=== PATIENT | male | born 2000 | race Caucasian/White ===

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

== ENCOUNTER → 2021-01-12 | Outpatient (REF) | payer MEDICAID ==
[~2021-01-12] MED LIST changes: -QUET50TA3 PO; +QUET50TA4 PO
[2021-01-12 13:35] LABS: BASO % 0.2 % (0.0-1.0); EOS # 0.1 10^3/uL (0.0-0.5); EOS % 1.4 % (0.0-3.0); HEMATOCRIT 37.1 % (42.0-52.0); HEMOGLOBIN 12.4 g/dl (13.5-17.5); LYMPH # 1.7 10^3/uL (1.5-5.0); LYMPH % 40.3 % (24.0-44.0); MEAN CORPUSCULAR HGB CONC 33.4 g/dl (32.0-36.5); MEAN CORPUSCULAR VOLUME 86.7 fl (80.0-96.0); MONO # 0.5 10^3/uL (0.0-0.8); MONO % 10.6 % (2.0-8.0); PLATELET COUNT, AUTOMATED 326 10^3/uL (150-450); RED BLOOD COUNT 4.28 10^6/uL (4.30-6.10); WHITE BLOOD COUNT 4.3 10^3/uL (4.0-10.0)
[2021-01-12 14:35] LABS: ALBUMIN 3.6 GM/DL (3.2-5.2); ALT/SGPT 17 U/L (12-78); BILIRUBIN,TOTAL 0.3 MG/DL (0.2-1.0); BLOOD UREA NITROGEN 9 MG/DL (7-18); CALCIUM LEVEL 8.7 MG/DL (8.5-10.1); CARBON DIOXIDE LEVEL 24 MEQ/L (21-32); CHLORIDE LEVEL 99 MEQ/L (98-107); CREATININE FOR GFR 0.46 MG/DL (0.70-1.30); GLUCOSE, FASTING 84 MG/DL (70-100); POTASSIUM SERUM 4.2 MEQ/L (3.5-5.1); SODIUM LEVEL 131 MEQ/L (136-145); TOTAL 25(OH) VITAMIN D 62.5 NG/ML (30.0-100.0); TOTAL PROTEIN 6.7 GM/DL (6.4-8.2); VALPROIC ACID (DEPAKOTE) 75.4 UG/ML (50.0-100.0)
== END ==
LOC: M LABDRWAD 12:57
PROVIDERS: ATTEND Physician Assistant Medical
DX: R56.9 Unspecified convulsions (principal); R53.83 Other fatigue; E55.9 Vitamin D deficiency, unspecified

== ENCOUNTER → 2021-04-05 | Outpatient (REF) | payer MEDICAID ==
[2021-04-05 19:06] LABS: ALT/SGPT 20 U/L (12-78); BLOOD UREA NITROGEN 13 MG/DL (7-18); CALCIUM LEVEL 9.2 MG/DL (8.5-10.1); CARBON DIOXIDE LEVEL 24 MEQ/L (21-32); CHLORIDE LEVEL 92 MEQ/L (98-107); CREATININE FOR GFR 0.54 MG/DL (0.70-1.30); GLUCOSE, FASTING 86 MG/DL (70-100); POTASSIUM SERUM 4.2 MEQ/L (3.5-5.1); SODIUM LEVEL 126 MEQ/L (136-145)
[2021-04-05 19:07] LABS: ALBUMIN 3.7 GM/DL (3.2-5.2); BILIRUBIN,TOTAL 0.3 MG/DL (0.2-1.0); TOTAL PROTEIN 6.9 GM/DL (6.4-8.2)
[2021-04-05 19:34] LABS: HEMOGLOBIN A1c 5.2 %
== END ==
LOC: M SFHCADAM 15:23
PROVIDERS: ATTEND Physician Assistant Medical
DX: I10 Essential (primary) hypertension (principal); E66.01 Morbid (severe) obesity due to excess calories; R63.5 Abnormal weight gain

== ENCOUNTER 2021-04-06 14:20 | Emergency (ER) | payer MEDICAID ==
[~2021-04-06] VITALS: Ht 170.2 cm; Wt 123.6 kg
[2021-04-06 14:21] VITALS: BP 133/73
--- OUTSIDE RECORDS SUMMARY | 2021-04-06 14:26 | CCD ---
Author Author [facility] Organization [facility] Address Unknown Phone Unavailable Care Team Providers Care Linseed Oil Boiler Name Role Phone Mimi Delgado Unavailable PROBLEMS Type Condition ICD9-CM Code [id number] Code Onset Dates Condition S tatus W/U Status Risk SNOMED Code Notes Problem Other iron deficiency anemia D50.8 Active confirme d 17129261 Problem Seizure disorder G40.909 Active confirmed 12 4740412 Problem Obesity (BMI 30.0-34.9) E66.9 Active confirmed 135109679188421 Problem Essential hypertension I10 Active confirmed 02553498 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 confirme d 42710246 Problem Autism F84.0 Active confirmed 879465058 ALLERGIES Allergen (clinical drug ingredient) Drug/Non Drug Allergy do cumented on EMR Reaction Allergy Type Onset Date Status amoxicillin Amoxicillin(ND Code:[address]-18) Unknown Drug Aller gy Active amoxicillin / clavulanate Augmentin([facility] Code:[address]-75) Unkn own Drug Allergy Active Ducor and milk loose stools Non Drug Allergy Act andres Penicillin (For Allergies Use Only) Unknown Drug Allerg y Active ENCOUNTERS from 2001 to 2021-01-05 Encounter Location Date Provider Diagnosis [facility] [address] [address] [place] [address] Dec, Mimi Delgado IMMUNIZATIONS Vaccine Route Administration Date Status Influenza 18 yrs & older Flublok IM Intramuscular May 22, 2020 Administered SOCIAL HISTORY Tobacco Use: Social History Observation Description Date Details (start date - stop date) Never Smoker Sex Assigned At : Social History Observation Description Sex Assigned At Unknown Audit Question Answer Notes Total Score: 0 Interpretation: Alcohol Education Drug and Alcohol Question Answer Notes Total Score: 0 Interpretation: No problems reported Alcohol Screening: Question Answer Notes Did you have a drink containing alcohol in the past year? No Points 0 Interpretation Negative Tobacco Use: Question Answer Notes Are you a: never smoker REASON FOR REFERRAL No Information VITAL SIGNS No information MEDICATIONS Medication SIG (Take, Route, Frequency, Duration) Notes Start Da te End Date Status metFORMIN HCl 500 MG Take 1 tablet By Mouth twice a day Orally Once a day for 30 days Active Haloperidol 5 MG 1 tablet Orally Once a day as needed Active Haloperidol 10 MG 1 tablet Orally twice daily Active Drisdol 1.25 MG (10549 UT) Take 1 capsule By Mouth once a week for 28 Active Sertraline HCl 50 MG 1 tablet Orally Once a day for 30 day(s) Active Melatonin 5 MG 1 tablet in the evening Orally Once a day for 90 days Active Lisinopril 10 MG 1 tablet Orally Once a day for 90 days Apr, Active Ferrous Sulfate 325 (65 Fe) MG 1 tablet Orally twice a day for 30 Active Depakote ER 500 MG 1 tablet Orally three times daily Active guanFACINE HCl 1 MG 3 tablets Orally Daily Active Vitamin C 500 MG 2 tablet Orally Once a day for 30 Days Active Aquaphor - from the neck down Externally before bedtime for 30 Days May, Active SEROquel XR 50 MG 2.5 tablets Orally twice daily Active Cefdinir 300 MG 1 capsule Orally Twice a day for 10 days 0 September, Active Vitamin D (Ergocalciferol) 1.25 MG (68150 UT) 1 capsule Orally w eekly for 28 Active Occupational Therapy as directed F84.0 2-3 x weekly for 30 Days September, Active Debrox 6.5 % 5 drops into each ear, cover with cotton ball, leave in overnight Otic Once a week at bedtime for 30 Days September, Active PROCEDURES No Information RESULTS No Results REASON FOR VISIT refills MEDICAL (GENERAL) HISTORY Type Description Date Medical History Seizure - x1 01/11 follows with Neuro Medical History Pica Medical History Autism Medical History Reactive attachment disorder Medical History iron def anemia Medical History HTN Medical History urinary incontinence Medical History fecal incontinence Surgical History No Surgical history information Hospitalization History [facility], [facility] Goals Section No Information Health Concerns No Information MEDICAL EQUIPMENT No Information MENTAL STATUS No Information FUNCTIONAL STATUS No Information ASSESSMENTS No Information PLAN OF TREATMENT Medication Medication Name Sig Start Date Stop Date Ferrous Sulfate 325 (65 Fe) MG 1 tablet Orally twice a day for 3 0 Vitamin D (Ergocalciferol) 1.25 MG (99984 UT) 1 capsule Orally w eekly for 28 Lisinopril 10 MG 1 tablet Orally Once a day for 90 days Apr, Melatonin 5 MG 1 tablet in the evening Orally Once a day for 90 days metFORMIN HCl 500 MG Take 1 tablet By Mouth twice a day Orally Once a day for 30 days Occupational Therapy as directed F84.0 2-3 x weekly for 30 Days September, Next Appt Details Provider Name:Mimi Delgado, 2021-05-03 09:30:00 AM, [address] [address], , [place], [address], Insurance Providers Payer Name Payer Address Payer Phone Insured Name Patient Relati onship to Insured Coverage Start Date Coverage End Date MEDICAID [employer] [address] [facility] [id number] DEWEY PAEZ self
--- OUTSIDE RECORDS SUMMARY | 2021-04-06 14:26 | CCD | Continuity of Care Document ---
Author Author Parag MANZANARES P.A.-C. Organization Unknown Address [address] [place] [address] Phone [phone] Care Team Providers Care Forklift Technician Name Role Phone DelgadoMimi AUTM [phone] Problems Description No Information Available Social History Type Date Description Comments Sex Unknown Allergies, Adverse Reactions, Alerts Active Allergies Criticality Reaction | Severity Comments Date Penicillin Unable to assess criticality 05/11/2019 Augmentin Unable to assess criticality 05/11/2019 Eggs Unable to assess criticality 05/11/2019 Milk Fat, Cow Unable to assess criticality 05/11/2019 Lindsay Oil Unable to assess criticality 05/11/2019 Medications Description No Information Available Immunizations Description No Information Available Vital Signs Date Vital Result Comment 02/23/2020 7:32am Weight 232.00 lb per nurse Weight Percentile >97th 08/23/2019 7:25am BP Systolic 140 mmHg BP Diastolic 70 mmHg Heart Rate 84 /min Respiratory Rate 16 /min Results Test Acquired Date Facility Test Result H/L Range Note CBC With Differential 01/12/2021 [facility] White Blood Count 4.3 10 Normal 4.0-10.0 Red Blood Count 4.28 10 Low 4.30-6.10 Hemoglobin 12.4 g/dL Low 13.5-17.5 Hematocrit 37.1 % Low 42.0-52.0 Mean Corpuscular Volume 86.7 fl Normal 80.0-96.0 Mean Corpuscular Hemoglobin 29.0 pg Normal 27.0-33.0 Mean Corpuscular HGB Conc 33.4 g/dL Normal 32.0-36.5 Red Cell Distribution Width 12.3 % Normal 11.5-14.5 Platelet Count, Automated 326 10 Normal 150-450 Neutrophils % 47.0 % Normal 36.0-66.0 Lymph % 40.3 % Normal 24.0-44.0 [place] % 10.6 % High 2.0-8.0 Eos % 1.4 % Normal 0.0-3.0 Baso % 0.2 % Normal 0.0-1.0 Immature Granulocyte % 0.5 % Normal 0-3.0 Nucleated Red Blood Cell % 0.0 % Normal 0-0 Neutrophils # 2.0 10 Normal 1.5-8.5 Lymph # 1.7 10 Normal 1.5-5.0 [place] # 0.5 10 Normal 0.0-0.8 Eos # 0.1 10 Normal 0.0-0.5 Baso # 0.0 10 Normal 0.0-0.2 Comprehensive Metabolic Profil 01/12/2021 [facility] Glucose, Fasting 84 mg/dL Normal 70-100 Blood Urea Nitrogen 9 mg/dL Normal 7-18 Creatinine For GFR 0.46 mg/dL Low 0.70-1.30 Sodium Level 131 mEq/L Low 136-145 Potassium Serum 4.2 mEq/L Normal 3.5-5.1 Chloride Level 99 mEq/L Normal 98-107 Carbon Dioxide Level 24 mEq/L Normal 21-32 Anion Gap 8 mEq/L Normal 8-16 Calcium Level 8.7 mg/dL Normal 8.5-10.1 Ast/Sgot 8 U/L Normal 7-37 Alt/SGPT 17 U/L Normal 12-78 Alkaline Phosphatase 38 U/L Low 45-117 Bilirubin,Total 0.3 mg/dL Normal 0.2-1.0 Total Protein 6.7 GM/DL Normal 6.4-8.2 Albumin 3.6 GM/DL Normal 3.2-5.2 Albumin/Globulin Ratio 1.2 Normal Laboratory test finding 01/12/2021 [facility] Valproic Acid (Depakote) 75.4 UG/ML Normal 50.0-100.0 Thyroid Stimulating Hormone 1.550 uIU/ML Normal 0.463-3.98 Total 25(Oh) Vitamin D 62.5 NG/ML Normal 30.0-100.0 CBC With Differential 12/28/2020 [facility] White Blood Count 4.2 10 Normal 4.0-10.0 Red Blood Count 4.78 10 Normal 4.30-6.10 Hemoglobin 13.7 g/dL Normal 13.5-17.5 Hematocrit 42.1 % Normal 42.0-52.0 Mean Corpuscular Volume 88.1 fl Normal 80.0-96.0 Mean Corpuscular Hemoglobin 28.7 pg Normal 27.0-33.0 Mean Corpuscular HGB Conc 32.5 g/dL Normal 32.0-36.5 Red Cell Distribution Width 12.4 % Normal 11.5-14.5 Platelet Count, Automated 358 10 Normal 150-450 Neutrophils % 39.3 % Normal 36.0-66.0 Lymph % 49.3 % High 24.0-44.0 [place] % 8.6 % High 2.0-8.0 Eos % 2.1 % Normal 0.0-3.0 Baso % 0.5 % Normal 0.0-1.0 Immature Granulocyte % 0.2 % Normal 0-3.0 Nucleated Red Blood Cell % 0.0 % Normal 0-0 Neutrophils # 1.7 10 Normal 1.5-8.5 Lymph # 2.1 10 Normal 1.5-5.0 [place] # 0.4 10 Normal 0.0-0.8 Eos # 0.1 10 Normal 0.0-0.5 Baso # 0.0 10 Normal 0.0-0.2 Comprehensive Metabolic Profil 12/28/2020 [facility] Glucose, Fasting 85 mg/dL Normal 70-100 Blood Urea Nitrogen 9 mg/dL Normal 7-18 Creatinine For GFR 0.50 mg/dL Low 0.70-1.30 Sodium Level 140 mEq/L Normal 136-145 Potassium Serum 4.7 mEq/L Normal 3.5-5.1 Chloride Level 107 mEq/L Normal 98-107 Carbon Dioxide Level 30 mEq/L Normal 21-32 Anion Gap 3 mEq/L Low 8-16 Calcium Level 9.5 mg/dL Normal 8.5-10.1 Ast/Sgot 25 U/L Normal 7-37 Alt/SGPT 23 U/L Normal 12-78 Alkaline Phosphatase 45 U/L Normal 45-117 Bilirubin,Total 0.2 mg/dL Normal 0.2-1.0 Total Protein 7.4 GM/DL Normal 6.4-8.2 Albumin 3.9 GM/DL Normal 3.2-5.2 Albumin/Globulin Ratio 1.1 Normal Laboratory test finding 12/28/2020 [facility] Valproic Acid (Depakote) 79.9 UG/ML Normal 50.0-100.0 Laboratory test finding 10/17/2020 [facility] Valproic Acid (Depakote) 63.1 UG/ML Normal 50.0-100.0 Procedures Date Code Description Status 02/26/2021 54996 Office/Outpatient Established Mo d MDM 30-39 Min Completed 08/31/2020 98246 Office/Outpatient Established Mo d MDM 30-39 Min Completed Medical Devices Description No Information Available Encounters Type Date Location Provider Dx Diagnosis Office Visit 02/26/2021 9:00a Main office - [facility] Nataliya Quiroz.A.-C. R56.9 Unspecified convulsions F84.0 Autistic disorder Office Visit 08/31/2020 9:15a Main office - [facility] Nataliya Quiroz.A.-C. R56.9 Unspecified convulsions F84.0 Autistic disorder Assessments Date Code Description Provider 02/26/2021 R56.9 Unspecified convulsions Nataliya Castro.A.-C. 02/26/2021 F84.0 Autistic disorder Nataliya Tejeda.A.-C. 08/31/2020 R56.9 Unspecified convulsions Nataliya Castro.A.-C. 08/31/2020 F84.0 Autistic disorder Nataliya Tejeda.A.-CSunshine Plan of Treatment No Information Available Functional Status Description No Information Available Mental Status Description No Information Available Referrals Description No Information Available"
--- OUTSIDE RECORDS SUMMARY | 2021-04-06 14:26 | CCD | Continuity of Care Document ---
Author Author Parag FAJARDO P.A.-C. Organization Unknown Address [address] [place] [address] Phone [phone] Care Team Providers Care Third Grade Teacher Name Role Phone DelgadoMimi AUTM [phone] Problems Description No Information Available Social History Type Date Description Comments Sex Unknown Allergies and adverse reactions Active Allergies Criticality Reaction | Severity Comments Date Penicillin Unable to assess criticality 05/11/2019 Augmentin Unable to assess criticality 05/11/2019 Eggs Unable to assess criticality 05/11/2019 Milk Fat, Cow Unable to assess criticality 05/11/2019 [place] Oil Unable to assess criticality 05/11/2019 Medications Description No Information Available Immunizations Description No Information Available Vital Signs Date Vital Result Comment 02/26/2021 7:29am BP Systolic 110 mmHg BP Diastolic 70 mmHg Heart Rate 88 /min Respiratory Rate 20 /min 02/23/2020 7:32am Weight 232.00 lb per nurse Weight Percentile >97th Results Test Acquired Date Facility Test Result H/L Range Note CBC With Differential 01/12/2021 [facility] White Blood Count 4.3 10 Normal 4.0-10.0 [...] 36.0-66.0 Lymph % 40.3 % Normal 24.0-44.0 Ogle % 10.6 % High 2.0-8.0 Eos % 1.4 % Normal 0.0-3.0 Baso % 0.2 % Normal 0.0-1.0 Immature Granulocyte % 0.5 % Normal 0-3.0 Nucleated Red Blood Cell % 0.0 % Normal 0-0 Neutrophils # 2.0 10 Normal 1.5-8.5 Lymph # 1.7 10 Normal 1.5-5.0 Ogle # 0.5 10 Normal 0.0-0.8 Eos # 0.1 10 Normal 0.0-0.5 Baso # 0.0 10 Normal 0.0-0.2 Comprehensive Metabolic Profil 01/12/2021 [facility] Glucose, Fasting 84 mg/dL Normal 70-100 Blood [...] Ratio 1.2 Normal Laboratory test finding 01/12/2021 [facility] Valproic Acid (Depakote) 75.4 UG/ML Normal 50.0-100.0 Thyroid Stimulating Hormone 1.550 uIU/ML Normal 0.463-3.98 Total 25(Oh) Vitamin D 62.5 NG/ML Normal 30.0-100.0 CBC With Differential 12/28/2020 [facility] White Blood Count 4.2 10 Normal 4.0-10.0 [...] 36.0-66.0 Lymph % 49.3 % High 24.0-44.0 Ogle % 8.6 % High 2.0-8.0 Eos % 2.1 % Normal 0.0-3.0 Baso % 0.5 % Normal 0.0-1.0 Immature Granulocyte % 0.2 % Normal 0-3.0 Nucleated Red Blood Cell % 0.0 % Normal 0-0 Neutrophils # 1.7 10 Normal 1.5-8.5 Lymph # 2.1 10 Normal 1.5-5.0 Ogle # 0.4 10 Normal 0.0-0.8 Eos # 0.1 10 Normal 0.0-0.5 Baso # 0.0 10 Normal 0.0-0.2 Comprehensive Metabolic Profil 12/28/2020 [facility] Glucose, Fasting 85 mg/dL Normal 70-100 Blood [...] Ratio 1.1 Normal Laboratory test finding 12/28/2020 [facility] Valproic Acid (Depakote) 79.9 UG/ML Normal 50.0-100.0 Laboratory test finding 10/17/2020 [facility] Valproic Acid (Depakote) 63.1 UG/ML Normal 50.0-100.0 Procedures Date Code Description Status 02/26/2021 60496 Office/Outpatient Established Mo d MDM 30-39 Min Completed Medical Devices Description No Information Available Encounters Type Date Location Provider Dx Diagnosis Office Visit 02/26/2021 9:00a [facility] Anneliese de leon P.A.-C. R56.9 Unspecified convulsions F84.0 Autistic disorder Assessments Date Code Description Provider 02/26/2021 R56.9 Unspecified convulsions Anneliese Fajardo P.A.-C. 02/26/2021 F84.0 Autistic disorder Anneliese hayden P.A.-C. Plan of Treatment Future Appointment(s):* 08/23/2021 8:00 am - Anneliese Fajardo P.A.-C. at [facility] 02/26/2021 - Anneliese Fajardo P.A.-C.* R56.9 Unspecified convulsions* Comments: * Continue Depakote. His aide will have his serum level forwarded. * F84.0 Autistic disorder* Comments:* Follow up with behavioral health. * Follow up:* 6 months. Functional Status Description No Information Available Mental Status Description No Information Available Referrals Description No Information Available"
--- OUTSIDE RECORDS SUMMARY | 2021-04-06 14:26 | CCD | Continuity of Care Document ---
Author Author Parag FAJARDO P.A.-C. Organization Unknown Address [address] [place] [address] Phone [phone] Care Team Providers Care Loss Prevention Detective Name Role Phone DelgadoMimi AUTM [phone] Problems Description No Information Available Social History Type Date Description Comments Sex Unknown Allergies, Adverse Reactions, Alerts Active Allergies Criticality Reaction | Severity Comments Date Penicillin Unable to assess criticality 05/11/2019 Augmentin Unable to assess criticality 05/11/2019 Eggs Unable to assess criticality 05/11/2019 Milk Fat, Cow Unable to assess criticality 05/11/2019 [place] Oil Unable to assess criticality 05/11/2019 Medications [...] H/L Range Note CBC With Differential 01/12/2021 [facility] White Blood Count 4.3 10 Normal [...] 36.0-66.0 Lymph % 40.3 % Normal 24.0-44.0 [place] % 10.6 % High 2.0-8.0 Eos % 1.4 % Normal 0.0-3.0 Baso % 0.2 % Normal 0.0-1.0 Immature Granulocyte % 0.5 % Normal 0-3.0 Nucleated Red Blood Cell % 0.0 % Normal 0-0 Neutrophils # 2.0 10 Normal 1.5-8.5 Lymph # 1.7 10 Normal 1.5-5.0 [place] # 0.5 10 Normal 0.0-0.8 Eos # 0.1 10 Normal 0.0-0.5 Baso # 0.0 10 Normal 0.0-0.2 Comprehensive Metabolic Profil 01/12/2021 [facility] Glucose, Fasting 84 mg/dL Normal 70-100 [...] Ratio 1.2 Normal Laboratory test finding 01/12/2021 [facility] Valproic Acid (Depakote) 75.4 UG/ML Normal 50.0-100.0 Thyroid Stimulating Hormone 1.550 uIU/ML Normal 0.463-3.98 Total 25(Oh) Vitamin D 62.5 NG/ML Normal 30.0-100.0 CBC With Differential 12/28/2020 [facility] White Blood Count 4.2 10 Normal [...] 36.0-66.0 Lymph % 49.3 % High 24.0-44.0 [place] % 8.6 % High 2.0-8.0 Eos % 2.1 % Normal 0.0-3.0 Baso % 0.5 % Normal 0.0-1.0 Immature Granulocyte % 0.2 % Normal 0-3.0 Nucleated Red Blood Cell % 0.0 % Normal 0-0 Neutrophils # 1.7 10 Normal 1.5-8.5 Lymph # 2.1 10 Normal 1.5-5.0 [place] # 0.4 10 Normal 0.0-0.8 Eos # 0.1 10 Normal 0.0-0.5 Baso # 0.0 10 Normal 0.0-0.2 Comprehensive Metabolic Profil 12/28/2020 [facility] Glucose, Fasting 85 mg/dL Normal 70-100 [...] Ratio 1.1 Normal Laboratory test finding 12/28/2020 [facility] Valproic Acid (Depakote) 79.9 UG/ML Normal 50.0-100.0 Laboratory test finding 10/17/2020 [facility] Valproic Acid (Depakote) 63.1 UG/ML Normal 50.0-100.0 Procedures Date Code Description Status 08/31/2020 34605 Office/Outpatient Established Mo d MDM 30-39 Min Completed Medical Devices Description No Information Available Encounters Type Date Location Provider Dx Diagnosis Office Visit 08/31/2020 9:15a [facility] [place] Anneliese de leon P.A.-C. R56.9 Unspecified convulsions F84.0 Autistic disorder Assessments Date Code Description Provider 08/31/2020 R56.9 Unspecified convulsions Anneliese Fajardo P.A.-C. 08/31/2020 F84.0 Autistic disorder Anneliese hayden P.A.-C. Plan of Treatment Future Appointment(s):* 02/26/2021 9:00 am - Anneliese Fajardo P.A.-C. at Main office - [place] 08/31/2020 - Anneliese Fajardo P.A.-C.* R56.9 Unspecified convulsions* Comments: * Controlled. He continues Depakote. * F84.0 Autistic disorder* Follow up:* 6 months. Functional Status Description No Information Available Mental Status Description No Information Available Referrals Description No Information Available"
--- OUTSIDE RECORDS SUMMARY | 2021-04-06 14:26 | CCD ---
Author Author [facility] Organization [facility] Address Unknown Phone Unavailable Care Team Providers Care Road Roller Operator Name Role Phone Mimi Delgado Unavailable PROBLEMS Type Condition ICD9-CM Code [id number] Code Onset Dates Condition S tatus W/U Status Risk SNOMED Code Notes Problem Other iron deficiency anemia D50.8 Active confirme d 90530992 Problem Seizure disorder G40.909 Active confirmed 12 1908425 Problem Obesity (BMI 30.0-34.9) E66.9 Active confirmed 793053134563992 Problem Essential hypertension I10 Active confirmed 04555925 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 confirme d 24475979 Problem Autism F84.0 Active confirmed 386734460 ALLERGIES Allergen (clinical drug ingredient) Drug/Non Drug Allergy do cumented on EMR Reaction Allergy Type Onset Date Status amoxicillin Amoxicillin(ND Code:[address]-10) Unknown Drug Aller gy Active amoxicillin / clavulanate Augmentin([facility] Code:[address]-71) Unkn own Drug Allergy Active Prior [place] and milk loose stools Non Drug Allergy Act andres Penicillin (For Allergies Use Only) Unknown Drug Allerg y Active ENCOUNTERS from 2001 to 2021-03-22 Encounter Location Date Provider Diagnosis [facility] [address] [place] [address], Mimi Delgado IMMUNIZATIONS Vaccine Route Administration Date [...] Notes Start Da te End Date Status FeroSul 325 (65 Fe) MG TAKE ONE TABLET BY MOUTH TWICE DAILY for 30 Active metFORMIN HCl 500 MG Take 1 tablet By Mouth twice a day Orally Once a day for 30 days Active guanFACINE HCl 1 MG 3 tablets Orally Daily Active Drisdol 1.25 MG (21872 UT) Take 1 capsule By Mouth once a week for 28 Active Sertraline HCl 50 MG 1 tablet Orally Once a day for 30 day(s) Active Ascorbic Acid 500 MG TAKE TWO TABLETS BY MOUTH ONCE DAILY for 30 Active Vitamin D (Ergocalciferol) 1.25 MG (49349 UT) 1 capsul e Orally weekly for 28 days Active Lisinopril 10 MG 1 tablet Orally Once a day for 90 days Apr, Active Cefdinir 300 MG 1 capsule Orally Twice a day for 10 days 0 September, Active Depakote ER 500 MG 1 tablet Orally three times daily Active Occupational Therapy as directed F84.0 2-3 x weekly for 30 Days September, Active Debrox 6.5 % 5 drops into each ear, cover with cotton ball, leave in overnight Otic Once a week at bedtime for 30 Days September, Active Haloperidol 10 MG 1 tablet Orally twice daily Active Aquaphor - from the neck down Externally before bedtime for 30 Days May, Active Melatonin 5 MG 1 tablet in the evening Orally Once a day for 90 days Active SEROquel XR 50 MG 2.5 tablets Orally twice daily Active Haloperidol 5 MG 1 tablet Orally Once a day as needed Active PROCEDURES No Information RESULTS No Results REASON FOR VISIT vitamin D MEDICAL (GENERAL) HISTORY Type Description Date Medical History Seizure - x1 01/11 follows with Neuro Medical History Pica Medical History Autism Medical History Reactive attachment disorder Medical History iron def anemia Medical History HTN Medical History urinary incontinence Medical History fecal incontinence Surgical History No Surgical history information Hospitalization History Hospitalization, unknown for a few m [facility] Goals Section No Information Health Concerns No Information MEDICAL EQUIPMENT No Information MENTAL STATUS No Information FUNCTIONAL STATUS No Information ASSESSMENTS No Information PLAN OF TREATMENT Medication Medication Name Sig Start Date Stop Date Lisinopril 10 MG 1 tablet Orally Once a day for 90 days Apr, Melatonin 5 MG 1 tablet in the evening Orally Once a day for 90 days Vitamin D (Ergocalciferol) 1.25 MG (36110 UT) 1 capsul e Orally weekly for 28 days Ascorbic Acid 500 MG TAKE TWO TABLETS BY MOUTH ONCE DAILY for 30 metFORMIN HCl 500 MG Take 1 tablet By Mouth twice a day Orally Once a day for 30 days Occupational Therapy as directed F84.0 2-3 x weekly for 30 Days September, FeroSul 325 (65 Fe) MG TAKE ONE TABLET BY MOUTH TWICE DAILY for 30 Next Appt Details Provider Name:Mimi Delgado, 2021-05-28 09:30:00 AM, [address], , [place], [address], Insurance Providers Payer Name Payer Address Payer Phone Insured Name Patient Relati onship to Insured Coverage Start Date Coverage End Date MEDICAID [address] [facility] [id number] [address] SOLORZ[place]O self
--- OUTSIDE RECORDS SUMMARY | 2021-04-06 14:27 | CCD ---
Author Author [facility] Organization [facility] Address Unknown Phone Unavailable Care Team Providers Care Student Support Advisor Name Role Phone Trickey, J Anneliese PA Unavailable Unavailable Trickey, J Anneliese PA Unavailable Unavailable Trickey, J Anneliese PA Unavailable Unavailable Trickey, J Anneliese PA Unavailable Unavailable Trickey, J Anneliese PA Unavailable Unavailable Trickey, J Anneliese PA Unavailable Unavailable Trickey, J Anneliese PA Unavailable Unavailable Trickey, J Anneliese PA Unavailable Unavailable Trickey, J Anneliese PA Unavailable Unavailable Trickey, J Anneliese PA Unavailable Unavailable Trickey, J Anneliese PA Unavailable Unavailable Trickey, J Anneliese PA Unavailable Unavailable Trickey, J Anneliese PA Unavailable Unavailable Trickey, J Anneliese PA Unavailable Unavailable Trickey, J Anneliese PA Unavailable Unavailable Trickey, J Anneliese PA Unavailable Unavailable Trickey, J Anneliese PA Unavailable Unavailable Trickey, J Anneliese PA Unavailable Unavailable Trickey, J Anneliese PA Unavailable Unavailable Trickey, J Anneliese PA Unavailable Unavailable Trickey, J Anneliese PA Unavailable Unavailable Trickey, J Anneliese PA Unavailable Unavailable Trickey, J Anneliese PA Unavailable Unavailable Trickey, J Anneliese PA Unavailable Unavailable Trickey, J Anneliese PA Unavailable Unavailable Trickey, J Anneliese PA Unavailable Unavailable Trickey, J Anneliese PA Unavailable Unavailable Trickey, J Anneliese PA Unavailable Unavailable Trickey, J Anneliese PA Unavailable Unavailable Trickey, J Anneliese PA Unavailable Unavailable Trickey, J Anneliese PA Unavailable Unavailable Trickey, J Anneliese PA Unavailable Unavailable Trickey, J Anneliese PA Unavailable Unavailable Trickey, J Anneliese PA Unavailable Unavailable Trickey, J Anneliese PA Unavailable Unavailable Trickey, J Anneliese PA Unavailable Unavailable Trickey, J Anneliese PA Unavailable Unavailable Trickey, J Anneliese PA Unavailable Unavailable Trickey, J Anneliese PA Unavailable Unavailable Trickey, J Anneliese PA Unavailable Unavailable Trickey, J Anneliese PA Unavailable Unavailable Trickey, J Anneliese PA Unavailable Unavailable Trickey, J Anneliese PA Unavailable Unavailable Trickey, J Anneliese PA Unavailable Unavailable Trickey, J Anneliese PA Unavailable Unavailable Trickey, J Anneliese PA Unavailable Unavailable Trickey, J Anneliese PA Unavailable Unavailable Trickey, J Anneliese PA Unavailable Unavailable Trickey, J Anneliese PA Unavailable Unavailable Howard Pierre MD Unavailable Unavailable Howard Pierre MD Unavailable Unavailable Howard Pierre MD Unavailable Unavailable Howard Pierre MD Unavailable Unavailable Howard Pierre MD Unavailable Unavailable Howard Pierre MD Unavailable Unavailable Howard Pierre MD Unavailable Unavailable Howard Pierre MD Unavailable Unavailable Howard Pierre MD Unavailable Unavailable Howard Pierre MD Unavailable Unavailable Howard Pierre MD Unavailable Unavailable Howard Pierre MD Unavailable Unavailable Howard Pierre MD Unavailable Unavailable Howard Pierre MD Unavailable Unavailable Howard Pierre MD Unavailable Unavailable Howard Pierre MD Unavailable Unavailable Howard Pierre MD Unavailable Unavailable Howard Pierre MD Unavailable Unavailable Howard Pierre MD Unavailable Unavailable Howard Pierre MD Unavailable Unavailable Howard Pierre MD Unavailable Unavailable Howard Pierre MD Unavailable Unavailable Howard Pierre MD Unavailable Unavailable Howard Pierre MD Unavailable Unavailable Howard Pierre MD Unavailable Unavailable Howard Pierre MD Unavailable Unavailable [place], Howard SELLERS Unavailable Unavailable [place], Howard SELLERS Unavailable Unavailable [place], Howard SELLERS Unavailable Unavailable [place], Howard SELLERS Unavailable Unavailable [place], Howard SELLERS Unavailable Unavailable [facility], [facility] Unavailable Unavailable Re-disclosure Warning The records that you are about to access may contain information from federally-assisted alcohol or drug abuse programs. If such information is present, then the following federally mandated warning applies: This information has been disclosed to you from records protected by federal confidentiality rules (42 CFR part 2). The federal rules prohibit you from making any further disclosure of this information unless further disclosure is expressly permitted by the written consent of the person to whom it pertains or as otherwise permitted by 42 CFR part 2. A general authorization for the release of medical or other information is NOT sufficient for this purpose. The Federal rules restrict any use of the information to criminally investigate or prosecute any alcohol or drug abuse patient.The records that you are about to access may contain highly sensitive health information, the redisclosure of which is protected by Article 27-F of the [facility] Public Health law. If you continue you may have access to information: Regarding HIV / AIDS; Provided by facilities licensed or operated by the [facility] Office of Mental Health; or Provided by the [facility] Office for People With Developmental Disabilities. If such information is present, then the following [facility] mandated warning applies: This information has been disclosed to you from confidential records which are protected by state law. State law prohibits you from making any further disclosure of this information without the specific written consent of the person to whom it pertains, or as otherwise permitted by law. Any unauthorized further disclosure in violation of state law may result in a fine or skilled nursing sentence or both. A general authorization for the release of medical or other information is NOT sufficient authorization for further disc losure. Encounters Encounter Providers Location Date Indications Data Source(s ) Unknown [address] [facility] [address] 03/22/2021 12:00:00 AM EDT eCW1 ([facility]) Outpatient Attender: Anneliese BONNER [facility] 02/26/2021 09:00:00 AM EDT MEDENT ([facility] HAWK gordon) Unknown [address] [facility] [address] 01/04/2021 12:00:00 AM EDT eCW1 ([facility]) Unknown [address] [facility] [address] 12/11/2020 12:00:00 AM EDT eCW1 ([facility]) Unknown [address] [facility] [address] 11/20/2020 12:00:00 AM EDT eCW1 ([facility]) Outpatient Attender: Howard Rubio/Gabby/Aman/Reind l 10/27/2020 11:20:00 AM EDT MEDENT ([facility]) Unknown [address] [facility] [address] 10/18/2020 12:00:00 AM EDT eCW1 ([facility]) Outpatient [address] [facility] [address] 10/16/2020 12:00:00 AM EDT eCW1 ([facility]) Outpatient Attender: Howard Rubio/Gabby/Aman/Reind l 10/03/2020 11:10:00 AM EDT MEDENT ([facility]) Unknown [address] [facility] [address] 09/27/2020 12:00:00 AM EDT eCW1 ([facility]) Outpatient [address] [facility] [address] 09/27/2020 12:00:00 AM EDT eCW1 ([facility]) Unknown [address] [facility] [address] 09/25/2020 12:00:00 AM EDT eCW1 ([facility]) Unknown [address] [facility] [address] 09/14/2020 12:00:00 AM EDT eCW1 ([facility]) Outpatient Attender: Anneliese BONNER [facility] 08/31/2020 09:15:00 AM EDT MEDENT ([facility]) Unknown [address] [facility] [address] 08/21/2020 12:00:00 AM EDT eCW1 ([facility]) Unknown [address] [facility] [address] 07/25/2020 12:00:00 AM EST eCW1 ([facility]) Office Visit Attender: Anneliese BONNER [facility] office - [facility] n 05/29/2020 07:30:00 AM EST MEDENT ([facility]) Outpatient [address] [facility] [address] 05/22/2020 12:00:00 AM EST eCW1 ([facility]) Unknown [address] [facility] [address] 03/28/2020 12:00:00 AM EST eCW1 ([facility]) Unknown [address] [facility] [address] 03/06/2020 12:00:00 AM EDT eCW1 ([facility]) Office Visit Attender: Anneliese BONNER [facility] n 02/23/2020 08:00:00 AM EDT MEDENT ([facility]) Outpatient Attender: JOSE THOMASON 02/16/2020 01:29:00 PM EDT [facility] Immunizations Vaccine Date Status Description Data Source(s) COVID-19 VACCINE Moderna 08/28/2020 12:00:00 AM EDT completed [facility] Vaccine Series Complete: YESThis Data wa s Submitted to [facility] Via [facility]. COVID-19 VACCINE Moderna 2020 12:00:00 AM EST completed [facility] Vaccine Series Complete: NOThis Data was Submitted to [facility] Via [employer]. influenza, recombinant, quadrIvalent,injectable, prese rvative free 05/22/2020 10:51:00 AM EST completed eCW1 ([facility]) influenza, recombinant, quadrIvalent,injectable, prese rvative free 05/22/2020 10:51:00 AM EST completed eCW1 ([facility]) influenza, recombinant, quadrIvalent,injectable, prese rvative free 05/22/2020 10:51:00 AM EST completed eCW1 ([facility]) influenza, recombinant, quadrIvalent,injectable, prese rvative free 05/22/2020 10:51:00 AM EST completed eCW1 ([facility]) influenza, recombinant, quadrIvalent,injectable, prese rvative free 05/22/2020 10:51:00 AM EST completed eCW1 ([facility]) influenza, recombinant, quadrIvalent,injectable, prese rvative free 05/22/2020 10:51:00 AM EST completed eCW1 ([facility]) influenza, recombinant, quadrIvalent,injectable, prese rvative free 05/22/2020 10:51:00 AM EST completed eCW1 ([facility]) influenza, recombinant, quadrIvalent,injectable, prese rvative free 05/22/2020 10:51:00 AM EST completed eCW1 ([facility]) influenza, recombinant, quadrIvalent,injectable, prese rvative free 05/22/2020 10:51:00 AM EST completed eCW1 ([facility]) influenza, recombinant, quadrIvalent,injectable, prese rvative free 05/22/2020 10:51:00 AM EST completed eCW1 ([facility]) influenza, recombinant, quadrIvalent,injectable, prese rvative free 05/22/2020 10:51:00 AM EST completed eCW1 ([facility]) influenza, recombinant, quadrIvalent,injectable, prese rvative free 05/22/2020 10:51:00 AM EST completed eCW1 ([facility]) influenza, recombinant, quadrIvalent,injectable, prese rvative free 05/22/2020 10:51:00 AM EST completed eCW1 ([facility]) Medications Medication Brand Name Start Date Product Form Dose Route Admi nistrative Instructions Pharmacy Instructions Status Indications Reaction Description Data Source(s) Occupational Therapy [facility] 10/19/2020 12:00:00 AM EDT active Occupational Therapy eCW1 ([facility]) Occupational Therapy UNK 10/19/2020 12:00:00 AM EDT active Occupational Therapy eCW1 ([facility]) Occupational Therapy UNK 10/19/2020 12:00:00 AM EDT active Occupational Therapy eCW1 ([facility]) Occupational Therapy UNK 10/19/2020 12:00:00 AM EDT active Occupational Therapy eCW1 ([facility]) Occupational Therapy UNK 10/19/2020 12:00:00 AM EDT active Occupational Therapy eCW1 ([facility]) Occupational Therapy UNK 10/19/2020 12:00:00 AM EDT active Occupational Therapy eCW1 ([facility]) carbamide peroxide 65 MG/ML Otic Solution [Debrox] Debrox 10/03/2020 12:00:00 AM EDT active MEDENT ([facility], ) carbamide peroxide 65 MG/ML Otic Solution [Debrox] Debrox 6. 5 % Debrox 6.5 % 09/27/2020 12:00:00 AM EDT active Debrox 6.5 % eCW1 ([facility]) cefdinir 300 MG Oral Capsule Cefdinir 300 MG Cefdinir 300 MG 09/27/2020 12:00:00 AM EDT 1.0 {capsule} active Cefdinir 300 MG eCW1 ([facility]) cefdinir 300 MG Oral Capsule Cefdinir 300 MG Cefdinir 300 MG 09/27/2020 12:00:00 AM EDT 1.0 {capsule} active Cefdinir 300 MG eCW1 ([facility]) cefdinir 300 MG Oral Capsule Cefdinir 300 MG Cefdinir 300 MG 09/27/2020 12:00:00 AM EDT 1.0 {capsule} active Cefdinir 300 MG eCW1 ([facility]) carbamide peroxide 65 MG/ML Otic Solution [Debrox] Debrox 6. 5 % Debrox 6.5 % 09/27/2020 12:00:00 AM EDT active Debrox 6.5 % eCW1 ([facility]) carbamide peroxide 65 MG/ML Otic Solution [Debrox] Debrox 6. 5 % Debrox 6.5 % 09/27/2020 12:00:00 AM EDT active Debrox 6.5 % eCW1 ([facility]) cefdinir 300 MG Oral Capsule Cefdinir 300 MG Cefdinir 300 MG 09/27/2020 12:00:00 AM EDT 1.0 {capsule} active Cefdinir 300 MG eCW1 ([facility]) cefdinir 300 MG Oral Capsule Cefdinir 300 MG Cefdinir 300 MG 09/27/2020 12:00:00 AM EDT 1.0 {capsule} active Cefdinir 300 MG eCW1 ([facility]) cefdinir 300 MG Oral Capsule Cefdinir 300 MG Cefdinir 300 MG 09/27/2020 12:00:00 AM EDT 1.0 {capsule} active Cefdinir 300 MG eCW1 ([facility]) carbamide peroxide 65 MG/ML Otic Solution [Debrox] Debrox 6. 5 % Debrox 6.5 % 09/27/2020 12:00:00 AM EDT active Debrox 6.5 % eCW1 ([facility]) carbamide peroxide 65 MG/ML Otic Solution [Debrox] Debrox 6. 5 % Debrox 6.5 % 09/27/2020 12:00:00 AM EDT active Debrox 6.5 % eCW1 ([facility]) carbamide peroxide 65 MG/ML Otic Solution [Debrox] Debrox 6. 5 % Debrox 6.5 % 09/27/2020 12:00:00 AM EDT active Debrox 6.5 % eCW1 ([facility]) carbamide peroxide 65 MG/ML Otic Solution [Debrox] Debrox 6. 5 % Debrox 6.5 % 09/27/2020 12:00:00 AM EDT active Debrox 6.5 % eCW1 ([facility]) cefdinir 300 MG Oral Capsule Cefdinir 300 MG Cefdinir 300 MG 09/27/2020 12:00:00 AM EDT 1.0 {capsule} active Cefdinir 300 MG eCW1 ([facility]) cefdinir 300 MG Oral Capsule Cefdinir 300 MG Cefdinir 300 MG 09/27/2020 12:00:00 AM EDT 1.0 {capsule} active Cefdinir 300 MG eCW1 ([facility]) carbamide peroxide 65 MG/ML Otic Solution [Debrox] Debrox 6. 5 % Debrox 6.5 % 09/27/2020 12:00:00 AM EDT active Debrox 6.5 % eCW1 ([facility]) Insurance Providers Payer name Policy type / Coverage type Policy ID Covered republican ID Covered republican's relationship to nation Policy Nation Plan Information Medicaid P [id number] S [id number] MEDICAID M [id number] Self [id number] Medicaid P [id number] S [id number] MEDICAID [id number] SP [id number] Medicaid P [id number] S [id number] Medicaid Dental S [id number] S [id number] Medicaid Dental S [id number] S [id number] MEDICAID M [id number] S [id number] MEDICAID [id number] SP [id number] [place] [id number] SP [id number] [place] [id number] [facility] MEDICAID [id number] SP [id number] Problems, Conditions, and Diagnoses Code Display Name Description Problem Type Effective Dates Data Source(s) 44029996 Essential hypertension Essential hypertension Problem 10/03/2020 12:00:00 AM EDT MEDENT ([facility], ) Surgeries/Procedures Procedure Description Date Indications Data Source(s) OFFICE OUTPATIENT VISIT 25 MINUTES 02/26/2021 12:00:00 AM EDT MEDENT ([facility], ) OFFICE OUTPATIENT VISIT 25 MINUTES 08/31/2020 12:00:00 AM EDT MEDENT ([facility], ) Immunization: Flublok Quadrivalent (18 years & older) 0.5mL IM (Influenza) 05/22/2020 12:00:00 AM EST eCW1 ([facility]) Results ID Date Data Source [id number] 01/12/2021 11:08:00 AM EDT MEDENT ([facility]) Name Value Range Interpretation Code Description Data Shraddha rce(s) Supporting Document(s) Valproate [Mass/volume] in Serum or Plasma 75.4 UG/ML 50.0-100.0 MEDENT ([facility]) Thyrotropin [Units/volume] in Serum or Plasma 1.550 uIU/ML 0.463-3.98 MEDENT ([facility]) Calcidiol [Mass/volume] in Serum or Plasma 62.5 ng/mL 30.0-100.0 MEDENT ([facility]) ID Date Data Source [id number] 01/12/2021 11:08:00 AM EDT MEDENT ([facility]) Name Value Range Interpretation Code Description Data Shraddha rce(s) Supporting Document(s) Glucose, Fasting 84 mg/dL 70-100 MEDENT ([facility]) Creatinine For GFR 0.46 mg/dL 0.70-1.30 MEDENT ([facility]) Blood Urea Nitrogen 9 mg/dL 7-18 MEDENT ([facility]) Sodium Level 131 meq/L 136-145 MEDENT ([facility]) Potassium Serum 4.2 meq/L 3.5-5.1 MEDENT ([facility]) Carbon Dioxide Level 24 meq/L 21-32 MEDENT ([facility]) Chloride Level 99 meq/L 98-107 MEDENT ([facility]) Calcium Level 8.7 mg/dL 8.5-10.1 MEDENT ([facility]) Anion Gap 8 meq/L 8-16 MEDENT ([facility]) Alt/SGPT 17 U/L 12-78 MEDENT ([facility]) Ast/Sgot 8 U/L 7-37 MEDENT ([facility]) Alkaline Phosphatase 38 U/L 45-117 MEDENT ([facility]) Total Protein 6.7 GM/DL 6.4-8.2 MEDENT ([facility]) Bilirubin,Total 0.3 mg/dL 0.2-1.0 MEDENT ([facility]) Albumin 3.6 GM/DL 3.2-5.2 MEDENT ([facility]) Albumin/Globulin Ratio 1.2 MEDENT ([facility]) ID Date Data Source [id number] 01/12/2021 11:08:00 AM EDT MEDENT ([facility]) Name Value Range Interpretation Code Description Data Shraddha rce(s) Supporting Document(s) Hemoglobin 12.4 g/dL 13.5-17.5 MEDENT ([facility]) White Blood Count 4.3 10 4.0-10.0 MEDENT ([facility]) Red Blood Count 4.28 10 4.30-6.10 MEDENT ([facility]) Mean Corpuscular Volume 86.7 fl 80.0-96.0 M EDENT ([facility]) Hematocrit 37.1 % 42.0-52.0 MEDENT ([facility]) Mean Corpuscular Hemoglobin 29.0 pg 27.0-33.0 MEDENT ([facility]) Platelet Count, Automated 326 10 150-450 MEDENT ([facility]) Mean Corpuscular HGB Conc 33.4 g/dL 32.0-36.5 MEDENT ([facility]) Red Cell Distribution Width 12.3 % 11.5-14.5 MEDENT ([facility]) Neutrophils % 47.0 % 36.0-66.0 MEDENT ([facility]) Wright % 10.6 % 2.0-8.0 MEDENT ([facility]) Lymph % 40.3 % 24.0-44.0 MEDENT ([facility]) Eos % 1.4 % 0.0-3.0 MEDENT ([facility]) Immature Granulocyte % 0.5 % 0-3.0 MEDENT ([facility]) Nucleated Red Blood Cell % 0.0 % 0-0 MED ENT ([facility]) Baso % 0.2 % 0.0-1.0 MEDENT ([facility]) Wright # 0.5 10 0.0-0.8 MEDENT ([facility]) Lymph # 1.7 10 1.5-5.0 MEDENT ([facility]) Neutrophils # 2.0 10 1.5-8.5 MEDENT ([facility], ) Baso # 0.0 10 0.0-0.2 MEDENT ([facility]) Eos # 0.1 10 0.0-0.5 MEDENT ([facility]) ID Date Data Source [id number] 12/28/2020 09:00:00 AM EDT MEDENT ([facility]) Name Value Range Interpretation Code Description Data Shraddha rce(s) Supporting Document(s) Valproate [Mass/volume] in Serum or Plasma 79.9 UG/ML 50.0-100.0 MEDENT ([facility]) ID Date Data Source [id number] 12/28/2020 09:00:00 AM EDT MEDENT ([facility]) Name Value Range Interpretation Code Description Data Shraddha rce(s) Supporting Document(s) Blood Urea Nitrogen 9 mg/dL 7-18 MEDENT ([facility], ) Glucose, Fasting 85 mg/dL 70-100 MEDENT ([facility]) Creatinine For GFR 0.50 mg/dL 0.70-1.30 MEDENT ([facility]) Chloride Level 107 meq/L 98-107 MEDENT ([facility]) Sodium Level 140 meq/L 136-145 MEDENT ([facility]) Potassium Serum 4.7 meq/L 3.5-5.1 MEDENT ([facility]) Anion Gap 3 meq/L 8-16 MEDENT ([facility]) Carbon Dioxide Level 30 meq/L 21-32 MEDENT ([facility]) Calcium Level 9.5 mg/dL 8.5-10.1 MEDENT ([facility]) Ast/Sgot 25 U/L 7-37 MEDENT ([facility]) Alt/SGPT 23 U/L 12-78 MEDENT ([facility]) Alkaline Phosphatase 45 U/L 45-117 MEDENT ([facility]) Total Protein 7.4 GM/DL 6.4-8.2 MEDENT ([facility]) Bilirubin,Total 0.2 mg/dL 0.2-1.0 MEDENT ([facility]) Albumin/Globulin Ratio 1.1 MEDENT ([facility]) Albumin 3.9 GM/DL 3.2-5.2 MEDENT ([facility]) ID Date Data Source [id number] 12/28/2020 09:00:00 AM EDT MEDENT ([facility]) Name Value Range Interpretation Code Description Data Shraddha rce(s) Supporting Document(s) White Blood Count 4.2 10 4.0-10.0 MEDENT ([facility], ) Hemoglobin 13.7 g/dL 13.5-17.5 MEDENT ([facility]) Red Blood Count 4.78 10 4.30-6.10 MEDENT ([facility]) Hematocrit 42.1 % 42.0-52.0 MEDENT ([facility]) Mean Corpuscular Hemoglobin 28.7 pg 27.0-33.0 MEDENT ([facility]) Mean Corpuscular Volume 88.1 fl 80.0-96.0 M EDENT ([facility]) Mean Corpuscular HGB Conc 32.5 g/dL 32.0-36.5 MEDENT ([facility]) Red Cell Distribution Width 12.4 % 11.5-14.5 MEDENT ([facility]) Neutrophils % 39.3 % 36.0-66.0 MEDENT ([facility]) Platelet Count, Automated 358 10 150-450 MEDENT ([facility]) Lymph % 49.3 % 24.0-44.0 MEDENT ([facility], ) Wright % 8.6 % 2.0-8.0 [facility] Eos % 2.1 % 0.0-3.0 [facility] Baso % 0.5 % 0.0-1.0 MEDENT [facility] Immature Granulocyte % 0.2 % 0-3.0 MEDENT ([facility]) Nucleated Red Blood Cell % 0.0 % 0-0 MED ENT [facility] Wright # 0.4 10 0.0-0.8 MEDENT ([facility]) Neutrophils # 1.7 10 1.5-8.5 MEDENT ([facility], ) Lymph # 2.1 10 1.5-5.0 MEDENT ([facility], ) Eos # 0.1 10 0.0-0.5 MEDENT ([facility], ) Baso # 0.0 10 0.0-0.2 MEDENT ([facility], ) ID Date Data Source [id number] 10/17/2020 10:35:00 AM EDT MEDENT ([facility] ) Name Value Range Interpretation Code Description Data Shraddha rce(s) Supporting Document(s) Valproate [Mass/volume] in Serum or Plasma 63.1 UG/ML 50.0-100.0 MEDENT ([facility], ) ID Date Data Source [id number] 09/27/2020 11:36:00 AM EDT [facility] Name Value Range Interpretation Code Description Data Shraddha rce(s) Supporting Document(s) SARS-CoV-2 (COVID-19) RNA [Presence] in Respiratory specimen by SHANNON with probe detection Not Detected [facility] This lab was ordered by [facility] and reported by [facility]. ID Date Data Source [id number] 09/27/2020 10:31:00 AM EDT [facility] Name Value Range Interpretation Code Description Data Shraddha rce(s) Supporting Document(s) SARS COVID ANTIGEN NEGATIVE [facility] This lab was ordered by [facility] nd reported by [facility]. ID Date Data Source [id number] 05/22/2020 12:00:00 AM EST eCW1 ([facility] [place] Name Value Range Interpretation Code Description Data Shraddha rce(s) Supporting Document(s) 1.360 0.463-3.98 THYROID STIMULATING HORMO NE eCW1 ([facility]) ID Date Data Source [id number] 05/22/2020 12:00:00 AM EST eCW1 ([facility]) Name Value Range Interpretation Code Description Data Shraddha rce(s) Supporting Document(s) Hemoglobin A1c/Hemoglobin.total in Blood 5.1 HEMOGLOBIN A1c eCW1 ([facility]) ID Date Data Source TOTAL IRON BINDING CAPACIT 05/22/2020 12:00:00 AM EST eCW1 ( [facility]) Name Value Range Interpretation Code Description Data Shraddha rce(s) Supporting Document(s) 288 250-450 TOTAL IRON BINDING CAPACI TY eCW1 ([facility]) 73 65-175 IRON (FE) eCW1 ([facility]) 25.3 19.7-50.0 PERCENT SATURATION eCW1 ([facility]) ID Date Data Source FERRITIN 05/22/2020 12:00:00 AM EST eCW1 ([facility]) Name Value Range Interpretation Code Description Data Shraddha rce(s) Supporting Document(s) 145 26-388 FERRITIN eCW1 ([facility]) ID Date Data Source Comprehensive Metabolic Profile (CMP) 05/22/2020 12:00:00 AM EST eCW1 ([facility]) Name Value Range Interpretation Code Description Data Shraddha rce(s) Supporting Document(s) 82 70-100 GLUCOSE, FASTING eCW1 ([facility]) 0.51 0.70-1.30 CREATININE FOR GFR eCW1 ([facility]) 7 7-18 BLOOD UREA NITROGEN eCW1 ([facility]) 4.2 3.5-5.1 POTASSIUM SERUM eCW1 ([facility]) 133 136-145 SODIUM LEVEL eCW1 ([facility]) 98 98-107 CHLORIDE LEVEL eCW1 ([facility]) 29 21-32 CARBON DIOXIDE LEVEL eCW1 ([facility]) 11 7-37 AST/SGOT eCW1 ([facility]) 9.1 8.5-10.1 CALCIUM LEVEL eCW1 ([facility]) 27 12-78 ALT/SGPT eCW1 ([facility]) 52 45-117 ALKALINE PHOSPHATASE eCW1 ([facility]) 0.1 0.2-1.0 BILIRUBIN,TOTAL eCW1 ([facility]) 6.9 6.4-8.2 TOTAL PROTEIN eCW1 ([facility]) 1.2 ALBUMIN/GLOBULIN RATIO eCW1 (Pending sale to [facility]) 3.7 3.2-5.2 ALBUMIN eCW1 ([facility]) ID Date Data Source CBC with Differential 05/22/2020 12:00:00 AM EST eCW1 ([facility]) Name Value Range Interpretation Code Description Data Shraddha rce(s) Supporting Document(s) 4.7 4.0-10.0 WHITE BLOOD COUNT eCW1 ([facility]) 4.31 4.30-6.10 RED BLOOD COUNT eCW1 ([facility]) 12.2 13.5-17.5 HEMOGLOBIN eCW1 ([facility]) 37.9 42.0-52.0 HEMATOCRIT eCW1 ([facility]) 28.3 27.0-33.0 MEAN CORPUSCULAR HEMOGLOB IN eCW1 ([facility]) 87.9 80.0-96.0 MEAN CORPUSCULAR VOLUME e CW1 ([facility]) 11.9 11.5-14.5 RED CELL DISTRIBUTION WID TH eCW1 ([facility]) 32.2 32.0-36.5 MEAN CORPUSCULAR HGB CONC eCW1 ([facility]) 48.2 36.0-66.0 NEUTROPHILS % eCW1 ([facility]) 318 150-450 PLATELET COUNT, AUTOMATED eCW1 ([facility]) 36.9 24.0-44.0 LYMPH % eCW1 ([facility]) 0.6 0.0-1.0 BASO % eCW1 ([facility]) 11.8 0.0-5.0 MONO % eCW1 ([facility]) 1.9 0.0-3.0 EOS % eCW1 ([facility]) 2.2 1.5-8.5 NEUTROPHILS # eCW1 ([facility]) 0.6 0.0-0.8 MONO # eCW1 ([facility]) 1.7 1.5-5.0 LYMPH # eCW1 ([facility]) 0.0 0.0-0.2 BASO # eCW1 ([facility]) 0.1 0.0-0.5 EOS # eCW1 ([facility]) Procedure Social History Code Duration Value Status Description Data Source(s ) Smoking 10/16/2020 12:00:00 AM EDT Never Smoker completed Never S moker eCW1 ([facility]) Smoking 10/16/2020 12:00:00 AM EDT Never Smoker completed Never S moker eCW1 ([facility]) Smoking 10/16/2020 12:00:00 AM EDT Never Smoker completed Never S moker eCW1 ([facility]) Smoking 10/16/2020 12:00:00 AM EDT Never Smoker completed Never S moker eCW1 ([facility]) Smoking 10/16/2020 12:00:00 AM EDT Never Smoker completed Never S moker eCW1 ([facility]) Smoking 10/16/2020 12:00:00 AM EDT Never Smoker completed Never S moker eCW1 ([facility]) Smoking 09/27/2020 12:00:00 AM EDT Never Smoker completed Never S moker eCW1 ([facility]) Smoking 09/27/2020 12:00:00 AM EDT Never Smoker completed Never S moker eCW1 ([facility]) Smoking 05/22/2020 12:00:00 AM EST Never Smoker completed Never S moker eCW1 ([facility]) Smoking 05/22/2020 12:00:00 AM EST Never Smoker completed Never S moker eCW1 ([facility]) Smoking 05/22/2020 12:00:00 AM EST Never Smoker completed Never S moker eCW1 ([facility]) Smoking 05/22/2020 12:00:00 AM EST Never Smoker completed Never S moker eCW1 ([facility]) Smoking 05/22/2020 12:00:00 AM EST Never Smoker completed Never S moker eCW1 ([facility]) Vital Signs ID Date Data Source UNK Name Value Range Interpretation Code Description Data Source(s) Systolic blood pressure 110 mm[Hg] 110 mm[Hg] M EDENT ([facility]) Diastolic blood pressure 70 mm[Hg] 70 mm[Hg] MEDENT ([facility]) Heart rate 88 /min 88 /[facility] Respiratory rate 20 /min 20 /min [facility] ( [facility]) Body height 64 [in_i] 64 [in_i] [facility] ([facility]) 5'4" Body weight 257.00 [lb_av] 257.00 [lb_av] MEDEN T ([facility]) Body mass index (BMI) [Ratio] 44.1 kg/m2 44.1 k g/m2 [facility] ([facility]) [place] body weight 130 [lb_av] 130 [lb_av] MEDEN T ([facility]) Body weight 116.575 kg 116.575 kg [facility] ([facility]) Body height [Percentile] 3 % 3 % [facility] ([facility]) Body surface area Derived from formula 2.18 m2 2.18 m2 [facility] ([facility]) Body weight 257 [lb_av] 257 [lb_av] eCW1 ([facility]) Body height 65 [in_i] 65 [in_i] eCW1 ([facility]) Body mass index (BMI) [Ratio] 42.76 kg/m2 42.76 kg/m2 eCW1 ([facility]) Heart rate 114 /min 114 /min eCW1 ([facility]) Respiratory rate 18 /min 18 /min eCW1 ([facility]) Body temperature 96.9 [degF] 96.9 [degF] eCW1 ( [facility]) Systolic blood pressure 130 mm[Hg] 130 mm[Hg] e CW1 ([facility]) Diastolic blood pressure 76 mm[Hg] 76 mm[Hg] eCW1 ([facility]) Body weight 256.00 [lb_av] 256.00 [lb_av] MEDEN T ([facility]) Body weight 116.122 kg 116.122 kg MARKEL ([facility], ) Body weight 260.8 [lb_av] 260.8 [lb_av] eCW1 (Pending sale to [facility]) Body height 65 [in_i] 65 [in_i] eCW1 ([facility]) Body mass index (BMI) [Ratio] 43.39 kg/m2 43.39 kg/m2 eCW1 ([facility]) Heart rate 113 /min 113 /min eCW1 ([facility]) Respiratory rate 18 /min 18 /min eCW1 ([facility]) Body temperature 97.9 [degF] 97.9 [degF] eCW1 ( [facility]) Systolic blood pressure 124 mm[Hg] 124 mm[Hg] e CW1 ([facility]) Diastolic blood pressure 76 mm[Hg] 76 mm[Hg] eCW1 ([facility]) Body weight 249 [lb_av] 249 [lb_av] eCW1 ([facility]) Body height 65 [in_i] 65 [in_i] eCW1 ([facility]) Body mass index (BMI) [Ratio] 41.43 kg/m2 41.43 kg/m2 eCW1 ([facility]) Heart rate 121 /min 121 /min eCW1 ([facility]) Respiratory rate 18 /min 18 /min eCW1 ([facility]) Body temperature 96.5 [degF] 96.5 [degF] eCW1 ( [facility]) Systolic blood pressure 128 mm[Hg] 128 mm[Hg] e CW1 ([facility]) Diastolic blood pressure 82 mm[Hg] 82 mm[Hg] eCW1 ([facility]) Body weight 232.00 [lb_av] 232.00 [lb_av] JACY Bailey ([facility], ) per nurse Patient Treatment Plan of Care Planned Activity Planned Date Details Description Data Source (s) Occupational Therapy 10/19/2020 12:00:00 AM EDT eCW1 ([facility]) Occupational Therapy 10/19/2020 12:00:00 AM EDT eCW1 ([facility]) Occupational Therapy 10/19/2020 12:00:00 AM EDT eCW1 ([facility]) Occupational Therapy 10/19/2020 12:00:00 AM EDT eCW1 ([facility]) Occupational Therapy 10/19/2020 12:00:00 AM EDT eCW1 ([facility]) Occupational Therapy 10/19/2020 12:00:00 AM EDT eCW1 ([facility]) carbamide peroxide 65 MG/ML Otic Solution [Debrox] 09/27/2020 12 :00:00 AM EDT eCW1 ([facility]) cefdinir 300 MG Oral Capsule 09/27/2020 12:00:00 AM EDT eCW1 ([facility]) carbamide peroxide 65 MG/ML Otic Solution [Debrox] 09/27/2020 12 :00:00 AM EDT eCW1 ([facility]) cefdinir 300 MG Oral Capsule 09/27/2020 12:00:00 AM EDT eCW1 ([facility])
--- OUTSIDE RECORDS SUMMARY | 2021-04-06 15:48 | CCD ---
Author Author [facility] Organization [facility] Address Unknown Phone Unavailable Care Team Providers Care Steamfitter Name Role Phone Trickey, J Anneliese PA [...] Unavailable Unavailable Howard Pierre MD Unavailable Unavailable [place], Howard SELLERS Unavailable Unavailable [place], Howard SELLERS Unavailable Unavailable [place], Howard SELLERS Unavailable Unavailable [place], Howard SELLERS Unavailable Unavailable [place], Howard SELLERS Unavailable Unavailable [facility], EKOLB Unavailable [...] is protected by Article 27-F of the [facility] Public Health law. If you continue you may have access to information: Regarding HIV / AIDS; Provided by facilities licensed or operated by the [facility] Office of Mental Health; or Provided by the [facility] Office for People With Developmental Disabilities. If such information is present, then the following [facility] mandated warning applies: This information has been [...] law may result in a fine or senior care sentence or both. A general authorization for the release of medical or other information is NOT sufficient authorization for further disc losure. Encounters Encounter Providers Location Date Indications Data Source(s ) Unknown [address] [facility] [address] 03/22/2021 12:00:00 AM EDT eCW1 ([facility]) Outpatient Attender: Anneliese BONNER [facility] 02/26/2021 09:00:00 AM EDT MEDENT ([facility] HAWK gordon) Unknown [address] [facility] [address] 01/04/2021 12:00:00 AM EDT eCW1 ([facility]) [place] [address] [facility] [address] 12/11/2020 12:00:00 AM EDT eCW1 ([facility]) Unknown [address] [facility] [address] 11/20/2020 12:00:00 AM EDT eCW1 ([facility]) Outpatient Attender: Howard Rubio/Gabby/Aman/Reind l 10/27/2020 11:20:00 AM EDT MEDENT ([facility]) Unknown [address] [facility] [address] 10/18/2020 12:00:00 AM EDT eCW1 ([facility]) Outpatient [address] [facility] [address] 10/16/2020 12:00:00 AM EDT eCW1 ([facility]) Outpatient Attender: Howard Rubio/Gabby/Aman/Reind l 10/03/2020 11:10:00 AM EDT MEDENT ([facility]) Unknown [address] [facility] [address] 09/27/2020 12:00:00 AM EDT eCW1 ([facility]) Outpatient [address] [facility] [address] 09/27/2020 12:00:00 AM EDT eCW1 ([facility]) Unknown [address] [facility] [address] 09/25/2020 12:00:00 AM EDT eCW1 ([facility]) Unknown [address] [facility] [address] 09/14/2020 12:00:00 AM EDT eCW1 ([facility]) Outpatient Attender: Anneliese BONNER [facility] 08/31/2020 09:15:00 AM EDT MEDENT ([facility]) [place] [address] [facility] [address] 08/21/2020 12:00:00 AM EDT eCW1 ([facility]) Unknown [address] [facility] [address] 07/25/2020 12:00:00 AM EST eCW1 ([facility]) Office Visit Attender: Anneliese BONNER [facility] office - [facility] n 05/29/2020 07:30:00 AM EST MEDENT ([facility]) Outpatient [address] [facility] [address] 05/22/2020 12:00:00 AM EST eCW1 ([facility]) Unknown [address] [facility] [address] 03/28/2020 12:00:00 AM EST eCW1 ([facility]) Unknown [address] [facility] [address] 03/06/2020 12:00:00 AM EDT eCW1 ([facility]) Office Visit Attender: Anneliese BONNER [facility] n 02/23/2020 08:00:00 AM EDT MEDENT ([facility]) Outpatient Attender: JOSE THOMASON 02/16/2020 01:29:00 PM EDT [facility] Immunizations Vaccine Date Status Description Data Source(s) COVID-19 VACCINE Moderna 08/28/2020 12:00:00 AM EDT completed [facility] Vaccine Series Complete: YESThis Data wa s Submitted to [facility] Via [employer]. COVID-19 VACCINE Moderna 2020 12:00:00 AM EST completed [facility] Vaccine Series Complete: NOThis Data was Submitted to [facility] Via [employer]. influenza, recombinant, quadrIvalent,injectable, prese rvative free 05/22/2020 10:51:00 AM EST completed eCW1 ([facility]) influenza, recombinant, quadrIvalent,injectable, prese rvative free 05/22/2020 10:51:00 AM EST completed eCW1 ([facility]) influenza, recombinant, quadrIvalent,injectable, prese rvative free 05/22/2020 10:51:00 AM EST completed eCW1 ([facility]) influenza, recombinant, quadrIvalent,injectable, prese rvative free 05/22/2020 10:51:00 AM EST completed eCW1 ([facility]) influenza, recombinant, quadrIvalent,injectable, prese rvative free 05/22/2020 10:51:00 AM EST completed eCW1 ([facility]) influenza, recombinant, quadrIvalent,injectable, prese rvative free 05/22/2020 10:51:00 AM EST completed eCW1 ([facility]) influenza, recombinant, quadrIvalent,injectable, prese rvative free 05/22/2020 10:51:00 AM EST completed eCW1 ([facility]) influenza, recombinant, quadrIvalent,injectable, prese rvative free 05/22/2020 10:51:00 AM EST completed eCW1 ([facility]) influenza, recombinant, quadrIvalent,injectable, prese rvative free 05/22/2020 10:51:00 AM EST completed eCW1 ([facility]) influenza, recombinant, quadrIvalent,injectable, prese rvative free 05/22/2020 10:51:00 AM EST completed eCW1 ([facility]) influenza, recombinant, quadrIvalent,injectable, prese rvative free 05/22/2020 10:51:00 AM EST completed eCW1 ([facility]) influenza, recombinant, quadrIvalent,injectable, prese rvative free 05/22/2020 10:51:00 AM EST completed eCW1 ([facility]) influenza, recombinant, quadrIvalent,injectable, prese rvative free 05/22/2020 10:51:00 AM EST completed eCW1 ([facility]) Medications Medication Brand Name Start Date Product Form Dose Route Admi nistrative Instructions Pharmacy Instructions Status Indications Reaction Description Data Source(s) Occupational Therapy [facility] 10/19/2020 12:00:00 AM EDT active Occupational Therapy eCW1 ([facility]) Occupational Therapy UNK 10/19/2020 12:00:00 AM EDT active Occupational Therapy eCW1 ([facility]) Occupational Therapy UNK 10/19/2020 12:00:00 AM EDT active Occupational Therapy eCW1 ([facility]) Occupational Therapy UNK 10/19/2020 12:00:00 AM EDT active Occupational Therapy eCW1 ([facility]) Occupational Therapy UNK 10/19/2020 12:00:00 AM EDT active Occupational Therapy eCW1 ([facility]) Occupational Therapy UNK 10/19/2020 12:00:00 AM EDT active Occupational Therapy eCW1 ([facility]) carbamide peroxide 65 MG/ML Otic Solution [Debrox] Debrox 10/03/2020 12:00:00 AM EDT active MEDENT ([facility], ) carbamide peroxide 65 MG/ML Otic Solution [Debrox] Debrox 6. 5 % Debrox 6.5 % 09/27/2020 12:00:00 AM EDT active Debrox 6.5 % eCW1 ([facility]) cefdinir 300 MG Oral Capsule Cefdinir 300 MG Cefdinir 300 MG 09/27/2020 12:00:00 AM EDT 1.0 {capsule} active Cefdinir 300 MG eCW1 ([facility]) cefdinir 300 MG Oral Capsule Cefdinir 300 MG Cefdinir 300 MG 09/27/2020 12:00:00 AM EDT 1.0 {capsule} active Cefdinir 300 MG eCW1 ([facility]) cefdinir 300 MG Oral Capsule Cefdinir 300 MG Cefdinir 300 MG 09/27/2020 12:00:00 AM EDT 1.0 {capsule} active Cefdinir 300 MG eCW1 ([facility]) carbamide peroxide 65 MG/ML Otic Solution [Debrox] Debrox 6. 5 % Debrox 6.5 % 09/27/2020 12:00:00 AM EDT active Debrox 6.5 % eCW1 ([facility]) carbamide peroxide 65 MG/ML Otic Solution [Debrox] Debrox 6. 5 % Debrox 6.5 % 09/27/2020 12:00:00 AM EDT active Debrox 6.5 % eCW1 ([facility]) cefdinir 300 MG Oral Capsule Cefdinir 300 MG Cefdinir 300 MG 09/27/2020 12:00:00 AM EDT 1.0 {capsule} active Cefdinir 300 MG eCW1 ([facility]) cefdinir 300 MG Oral Capsule Cefdinir 300 MG Cefdinir 300 MG 09/27/2020 12:00:00 AM EDT 1.0 {capsule} active Cefdinir 300 MG eCW1 ([facility]) cefdinir 300 MG Oral Capsule Cefdinir 300 MG Cefdinir 300 MG 09/27/2020 12:00:00 AM EDT 1.0 {capsule} active Cefdinir 300 MG eCW1 ([facility]) carbamide peroxide 65 MG/ML Otic Solution [Debrox] Debrox 6. 5 % Debrox 6.5 % 09/27/2020 12:00:00 AM EDT active Debrox 6.5 % eCW1 ([facility]) carbamide peroxide 65 MG/ML Otic Solution [Debrox] Debrox 6. 5 % Debrox 6.5 % 09/27/2020 12:00:00 AM EDT active Debrox 6.5 % eCW1 ([facility]) carbamide peroxide 65 MG/ML Otic Solution [Debrox] Debrox 6. 5 % Debrox 6.5 % 09/27/2020 12:00:00 AM EDT active Debrox 6.5 % eCW1 ([facility]) carbamide peroxide 65 MG/ML Otic Solution [Debrox] Debrox 6. 5 % Debrox 6.5 % 09/27/2020 12:00:00 AM EDT active Debrox 6.5 % eCW1 ([facility]) cefdinir 300 MG Oral Capsule Cefdinir 300 MG Cefdinir 300 MG 09/27/2020 12:00:00 AM EDT 1.0 {capsule} active Cefdinir 300 MG eCW1 ([facility]) cefdinir 300 MG Oral Capsule Cefdinir 300 MG Cefdinir 300 MG 09/27/2020 12:00:00 AM EDT 1.0 {capsule} active Cefdinir 300 MG eCW1 ([facility]) carbamide peroxide 65 MG/ML Otic Solution [Debrox] Debrox 6. 5 % Debrox 6.5 % 09/27/2020 12:00:00 AM EDT active Debrox 6.5 % eCW1 ([facility]) Insurance Providers Payer name Policy type / Coverage type Policy ID Covered constitution party ID Covered constitution party's relationship to nation Policy Nation Plan Information Medicaid P [id number] S [id number] MEDICAID M [id number] Self [id number] Medicaid P [id number] S [id number] MEDICAID [id number] SP [id number] Medicaid P [id number] S [id number] Medicaid Dental S [id number] S [id number] Medicaid Dental S [id number] S [id number] MEDICAID M [id number] S [id number] MEDICAID [id number] SP [id number] [place] [id number] SP [id number] [place] [id number] 18 [id number] [facility] MEDICAID [id number] N Problems, Conditions, and Diagnoses Code Display Name Description Problem Type Effective Dates Data Source(s) [id number] Essential hypertension Essential hypertension Problem 10/03/2020 12:00:00 AM EDT MEDENT ([facility], ) Surgeries/Procedures Procedure Description Date Indications Data Source(s) OFFICE OUTPATIENT VISIT 25 MINUTES 02/26/2021 12:00:00 AM EDT MEDENT ([facility] ) OFFICE OUTPATIENT VISIT 25 MINUTES 08/31/2020 12:00:00 AM EDT MEDENT ([facility], ) Immunization: Flublok Quadrivalent (18 years & older) 0.5mL IM (Influenza) 05/22/2020 12:00:00 AM EST eCW1 ([facility]) Results ID Date Data Source [id number] 01/12/2021 11:08:00 AM EDT MEDENT ([facility]) Name Value Range Interpretation Code Description Data Shraddha rce(s) Supporting Document(s) Valproate [Mass/volume] in Serum or Plasma 75.4 UG/ML 50.0-100.0 MEDENT ([facility]) Thyrotropin [Units/volume] in Serum or Plasma 1.550 uIU/ML 0.463-3.98 MEDENT ([facility]) Calcidiol [Mass/volume] in Serum or Plasma 62.5 ng/mL 30.0-100.0 MEDENT ([facility]) ID Date Data Source [id number] 01/12/2021 11:08:00 AM EDT MEDENT ([facility]) Name Value Range Interpretation Code Description Data Shraddha rce(s) Supporting Document(s) Glucose, Fasting 84 mg/dL 70-100 MEDENT ([facility]) Creatinine For GFR 0.46 mg/dL 0.70-1.30 MEDENT ([facility]) Blood Urea Nitrogen 9 mg/dL 7-18 MEDENT ([facility]) Sodium Level 131 meq/L 136-145 MEDENT ([facility]) Potassium Serum 4.2 meq/L 3.5-5.1 MEDENT ([facility]) Carbon Dioxide Level 24 meq/L 21-32 MEDENT ([facility]) Chloride Level 99 meq/L 98-107 MEDENT ([facility]) Calcium Level 8.7 mg/dL 8.5-10.1 MEDENT ([facility]) Anion Gap 8 meq/L 8-16 MEDENT ([facility]) Alt/SGPT 17 U/L 12-78 MEDENT ([facility]) Ast/Sgot 8 U/L 7-37 MEDENT ([facility]) Alkaline Phosphatase 38 U/L 45-117 MEDENT ([facility]) Total Protein 6.7 GM/DL 6.4-8.2 MEDENT ([facility]) Bilirubin,Total 0.3 mg/dL 0.2-1.0 MEDENT ([facility]) Albumin 3.6 GM/DL 3.2-5.2 MEDENT ([facility]) Albumin/Globulin Ratio 1.2 MEDENT ([facility]) ID Date Data Source [id number] 01/12/2021 11:08:00 AM EDT MEDENT ([facility]) Name Value Range Interpretation Code Description Data Shraddha rce(s) Supporting Document(s) Hemoglobin 12.4 g/dL 13.5-17.5 MEDENT ([facility]) White Blood Count 4.3 10 4.0-10.0 MEDENT ([facility]) Red Blood Count 4.28 10 4.30-6.10 MEDENT ([facility]) Mean Corpuscular Volume 86.7 fl 80.0-96.0 M EDENT ([facility]) Hematocrit 37.1 % 42.0-52.0 MEDENT ([facility]) Mean Corpuscular Hemoglobin 29.0 pg 27.0-33.0 MEDENT ([facility]) Platelet Count, Automated 326 10 150-450 MEDENT ([facility]) Mean Corpuscular HGB Conc 33.4 g/dL 32.0-36.5 MEDENT ([facility]) Red Cell Distribution Width 12.3 % 11.5-14.5 MEDENT ([facility]) Neutrophils % 47.0 % 36.0-66.0 MEDENT ([facility]) Sawyer % 10.6 % 2.0-8.0 MEDENT ([facility]) Lymph % 40.3 % 24.0-44.0 MEDENT ([facility]) Eos % 1.4 % 0.0-3.0 MEDENT ([facility]) Immature Granulocyte % 0.5 % 0-3.0 MEDENT ([facility]) Nucleated Red Blood Cell % 0.0 % 0-0 MED ENT ([facility]) Baso % 0.2 % 0.0-1.0 MEDENT ([facility]) Sawyer # 0.5 10 0.0-0.8 MEDENT ([facility]) Lymph # 1.7 10 1.5-5.0 MEDENT ([facility]) Neutrophils # 2.0 10 1.5-8.5 MEDENT ([facility], ) Baso # 0.0 10 0.0-0.2 MEDENT ([facility]) Eos # 0.1 10 0.0-0.5 MEDENT ([facility]) ID Date Data Source [id number] 12/28/2020 09:00:00 AM EDT MEDENT ([facility]) Name Value Range Interpretation Code Description Data Shraddha rce(s) Supporting Document(s) Valproate [Mass/volume] in Serum or Plasma 79.9 UG/ML 50.0-100.0 MEDENT ([facility]) ID Date Data Source [id number] 12/28/2020 09:00:00 AM EDT MEDENT ([facility]) Name Value Range Interpretation Code Description Data Shraddha rce(s) Supporting Document(s) Blood Urea Nitrogen 9 mg/dL 7-18 MEDENT ([facility], ) Glucose, Fasting 85 mg/dL 70-100 MEDENT ([facility]) Creatinine For GFR 0.50 mg/dL 0.70-1.30 MEDENT ([facility]) Chloride Level 107 meq/L 98-107 MEDENT ([facility]) Sodium Level 140 meq/L 136-145 MEDENT ([facility]) Potassium Serum 4.7 meq/L 3.5-5.1 MEDENT ([facility]) Anion Gap 3 meq/L 8-16 MEDENT ([facility]) Carbon Dioxide Level 30 meq/L 21-32 MEDENT ([facility]) Calcium Level 9.5 mg/dL 8.5-10.1 MEDENT ([facility]) Ast/Sgot 25 U/L 7-37 MEDENT ([facility]) Alt/SGPT 23 U/L 12-78 MEDENT ([facility]) Alkaline Phosphatase 45 U/L 45-117 MEDENT ([facility]) Total Protein 7.4 GM/DL 6.4-8.2 MEDENT ([facility]) Bilirubin,Total 0.2 mg/dL 0.2-1.0 MEDENT ([facility]) Albumin/Globulin Ratio 1.1 MEDENT ([facility]) Albumin 3.9 GM/DL 3.2-5.2 MEDENT ([facility]) ID Date Data Source [id number] 12/28/2020 09:00:00 AM EDT MEDENT ([facility]) Name Value Range Interpretation Code Description Data Shraddha rce(s) Supporting Document(s) White Blood Count 4.2 10 4.0-10.0 MEDENT ([facility], ) Hemoglobin 13.7 g/dL 13.5-17.5 MEDENT ([facility]) Red Blood Count 4.78 10 4.30-6.10 MEDENT ([facility]) Hematocrit 42.1 % 42.0-52.0 MEDENT ([facility]) Mean Corpuscular Hemoglobin 28.7 pg 27.0-33.0 MEDENT ([facility]) Mean Corpuscular Volume 88.1 fl 80.0-96.0 M EDENT ([facility]) Mean Corpuscular HGB Conc 32.5 g/dL 32.0-36.5 MEDENT ([facility]) Red Cell Distribution Width 12.4 % 11.5-14.5 MEDENT ([facility]) Neutrophils % 39.3 % 36.0-66.0 MEDENT ([facility]) Platelet Count, Automated 358 10 150-450 MEDENT ([facility]) Lymph % 49.3 % 24.0-44.0 MEDENT ([facility], ) Sawyer % 8.6 % 2.0-8.0 MEDENT [facility] Eos % 2.1 % 0.0-3.0 MEDENT [facility] Baso % 0.5 % 0.0-1.0 MEDENT [facility] Immature Granulocyte % 0.2 % 0-3.0 MEDENT ([facility]) Nucleated Red Blood Cell % 0.0 % 0-0 MED ENT [facility] Sawyer # 0.4 10 0.0-0.8 MEDENT ([facility]) Neutrophils # 1.7 10 1.5-8.5 MEDENT ([facility], ) Lymph # 2.1 10 1.5-5.0 MEDENT ([facility], ) Eos # 0.1 10 0.0-0.5 MEDENT ([facility], ) Baso # 0.0 10 0.0-0.2 MEDENT ([facility], ) ID Date Data Source [id number] 10/17/2020 10:35:00 AM EDT MEDENT ([facility] ) Name Value Range Interpretation Code Description Data Shraddha rce(s) Supporting Document(s) Valproate [Mass/volume] in Serum or Plasma 63.1 UG/ML 50.0-100.0 MEDENT ([facility], ) ID Date Data Source [id number] 09/27/2020 11:36:00 AM EDT [facility] Name Value Range Interpretation Code Description Data Shraddha rce(s) Supporting Document(s) SARS-CoV-2 (COVID-19) RNA [Presence] in Respiratory specimen by SHANNON with probe detection Not Detected [facility] This lab was ordered by [facility] and reported by [facility]. ID Date Data Source [id number] 09/27/2020 10:31:00 AM EDT [facility] Name Value Range Interpretation Code Description Data Shraddha rce(s) Supporting Document(s) SARS COVID ANTIGEN NEGATIVE [facility] This lab was ordered by JUAQUIN ivory nd reported by [facility]. ID Date Data Source [id number] 05/22/2020 12:00:00 AM EST eCW1 ([facility]) Name Value Range Interpretation Code Description Data Shraddha rce(s) Supporting Document(s) 1.360 0.463-3.98 THYROID STIMULATING HORMO NE eCW1 ([facility]) ID Date Data Source [id number] 05/22/2020 12:00:00 AM EST eCW1 ([facility]) Name Value Range Interpretation Code Description Data Shraddha rce(s) Supporting Document(s) Hemoglobin A1c/Hemoglobin.total in Blood 5.1 HEMOGLOBIN A1c eCW1 ([facility]) ID Date Data Source TOTAL IRON BINDING CAPACIT 05/22/2020 12:00:00 AM EST eCW1 ( [facility]) Name Value Range Interpretation Code Description Data Shraddha rce(s) Supporting Document(s) 288 250-450 TOTAL IRON BINDING CAPACI TY eCW1 ([facility]) 73 65-175 IRON (FE) eCW1 ([facility]) 25.3 19.7-50.0 PERCENT SATURATION eCW1 ([facility]) ID Date Data Source [id number] 05/22/2020 12:00:00 AM EST eCW1 ([facility]) Name Value Range Interpretation Code Description Data Shraddha rce(s) Supporting Document(s) 145 26-388 FERRITIN eCW1 ([facility]) ID Date Data Source Comprehensive Metabolic Profile (CMP) 05/22/2020 12:00:00 AM EST eCW1 ([facility]) Name Value Range Interpretation Code Description Data Shraddha rce(s) Supporting Document(s) 82 70-100 GLUCOSE, FASTING eCW1 ([facility]) 0.51 0.70-1.30 CREATININE FOR GFR eCW1 ([facility]) 7 7-18 BLOOD UREA NITROGEN eCW1 ([facility]) 4.2 3.5-5.1 POTASSIUM SERUM eCW1 ([facility]) 133 136-145 SODIUM LEVEL eCW1 ([facility]) 98 98-107 CHLORIDE LEVEL eCW1 ([facility]) 29 21-32 CARBON DIOXIDE LEVEL eCW1 ([facility]) 11 7-37 AST/SGOT eCW1 ([facility]) 9.1 8.5-10.1 CALCIUM LEVEL eCW1 ([facility]) 27 12-78 ALT/SGPT eCW1 ([facility]) 52 45-117 ALKALINE PHOSPHATASE eCW1 ([facility]) 0.1 0.2-1.0 BILIRUBIN,TOTAL eCW1 ([facility]) 6.9 6.4-8.2 TOTAL PROTEIN eCW1 ([facility]) 1.2 ALBUMIN/GLOBULIN RATIO eCW1 ([facility]) 3.7 3.2-5.2 ALBUMIN eCW1 ([facility]) ID Date Data Source CBC with Differential 05/22/2020 12:00:00 AM EST eCW1 ([facility]) Name Value Range Interpretation Code Description Data Shraddha rce(s) Supporting Document(s) 4.7 4.0-10.0 WHITE BLOOD COUNT eCW1 ([facility]) 4.31 4.30-6.10 RED BLOOD COUNT eCW1 ([facility]) 12.2 13.5-17.5 HEMOGLOBIN eCW1 ([facility]) 37.9 42.0-52.0 HEMATOCRIT eCW1 ([facility]) 28.3 27.0-33.0 MEAN CORPUSCULAR HEMOGLOB IN eCW1 ([facility]) 87.9 80.0-96.0 MEAN CORPUSCULAR VOLUME e CW1 ([facility]) 11.9 11.5-14.5 RED CELL DISTRIBUTION WID TH eCW1 ([facility]) 32.2 32.0-36.5 MEAN CORPUSCULAR HGB CONC eCW1 ([facility]) 48.2 36.0-66.0 NEUTROPHILS % eCW1 ([facility]) 318 150-450 PLATELET COUNT, AUTOMATED eCW1 ([facility]) 36.9 24.0-44.0 LYMPH % eCW1 ([facility]) 0.6 0.0-1.0 BASO % eCW1 ([facility]) 11.8 0.0-5.0 MONO % eCW1 ([facility]) 1.9 0.0-3.0 EOS % eCW1 ([facility]) 2.2 1.5-8.5 NEUTROPHILS # eCW1 ([facility]) 0.6 0.0-0.8 MONO # eCW1 ([facility]) 1.7 1.5-5.0 LYMPH # eCW1 ([facility]) 0.0 0.0-0.2 BASO # eCW1 ([facility]) 0.1 0.0-0.5 EOS # eCW1 ([facility]) Procedure Social History Code Duration Value Status Description Data Source(s ) Smoking 10/16/2020 12:00:00 AM EDT Never Smoker completed Never S moker eCW1 ([facility]) Smoking 10/16/2020 12:00:00 AM EDT Never Smoker completed Never S moker eCW1 ([facility]) Smoking 10/16/2020 12:00:00 AM EDT Never Smoker completed Never S moker eCW1 ([facility]) Smoking 10/16/2020 12:00:00 AM EDT Never Smoker completed Never S moker eCW1 ([facility]) Smoking 10/16/2020 12:00:00 AM EDT Never Smoker completed Never S moker eCW1 ([facility]) Smoking 10/16/2020 12:00:00 AM EDT Never Smoker completed Never S moker eCW1 ([facility]) Smoking 09/27/2020 12:00:00 AM EDT Never Smoker completed Never S moker eCW1 ([facility]) Smoking 09/27/2020 12:00:00 AM EDT Never Smoker completed Never S moker eCW1 ([facility]) Smoking 05/22/2020 12:00:00 AM EST Never Smoker completed Never S moker eCW1 ([facility]) Smoking 05/22/2020 12:00:00 AM EST Never Smoker completed Never S moker eCW1 ([facility]) Smoking 05/22/2020 12:00:00 AM EST Never Smoker completed Never S moker [facility] [facility] Smoking 05/22/2020 12:00:00 AM EST Never Smoker completed Never S moker eCW1 ([facility]) Smoking 05/22/2020 12:00:00 AM EST Never Smoker completed Never S moker eCW1 ([facility]) Vital Signs ID Date Data Source UNK Name Value Range Interpretation Code Description Data Source(s) Diastolic blood pressure 70 mm[Hg] 70 mm[Hg] MEDENT ([facility]) Respiratory rate 20 /min 20 /min MEDENT ( [facility]) Systolic blood pressure 110 mm[Hg] 110 mm[Hg] M EDENT ([facility]) Heart rate 88 /min 88 /[facility] Body height 64 [in_i] 64 [in_i] [facility] ([facility]) 5'4" Body weight 257.00 [lb_av] 257.00 [lb_av] MEDEN T ([facility]) Body mass index (BMI) [Ratio] 44.1 kg/m2 44.1 k g/m2 [facility] ([facility]) [place] body weight 130 [lb_av] 130 [lb_av] MEDEN T ([facility]) Body weight 116.575 kg 116.575 kg [facility] ([facility]) Body height [Percentile] 3 % 3 % [facility] ([facility]) Body surface area Derived from formula 2.18 m2 2.18 m2 [facility] ([facility]) Diastolic blood pressure 76 mm[Hg] 76 mm[Hg] eCW1 ([facility]) Body weight 257 [lb_av] 257 [lb_av] eCW1 ([facility]) Body height 65 [in_i] 65 [in_i] eCW1 ([facility]) Body mass index (BMI) [Ratio] 42.76 kg/m2 42.76 kg/m2 eCW1 ([facility]) Heart rate 114 /min 114 /min eCW1 ([facility]) Respiratory rate 18 /min 18 /min eCW1 ([facility]) Body temperature 96.9 [degF] 96.9 [degF] eCW1 ( [facility]) Systolic blood pressure 130 mm[Hg] 130 mm[Hg] e CW1 ([facility]) Body weight 256.00 [lb_av] 256.00 [lb_av] MEDEN T ([facility]) Body weight 116.122 kg 116.122 kg MARKEL ([facility], ) Body weight 260.8 [lb_av] 260.8 [lb_av] eCW1 ([facility]) Body height 65 [in_i] 65 [in_i] eCW1 ([facility]) Body mass index (BMI) [Ratio] 43.39 kg/m2 43.39 kg/m2 eCW1 ([facility]) Heart rate 113 /min 113 /min eCW1 ([facility]) Respiratory rate 18 /min 18 /min eCW1 ([facility]) Body temperature 97.9 [degF] 97.9 [degF] eCW1 ( [facility]) Systolic blood pressure 124 mm[Hg] 124 mm[Hg] e CW1 ([facility]) Diastolic blood pressure 76 mm[Hg] 76 mm[Hg] eCW1 ([facility]) Body weight 249 [lb_av] 249 [lb_av] eCW1 ([facility]) Body height 65 [in_i] 65 [in_i] eCW1 ([facility]) Body mass index (BMI) [Ratio] 41.43 kg/m2 41.43 kg/m2 eCW1 ([facility]) Heart rate 121 /min 121 /min eCW1 ([facility]) Respiratory rate 18 /min 18 /min eCW1 ([facility]) Body temperature 96.5 [degF] 96.5 [degF] eCW1 ( [facility]) Systolic blood pressure 128 mm[Hg] 128 mm[Hg] e CW1 ([facility]) Diastolic blood pressure 82 mm[Hg] 82 mm[Hg] eCW1 ([facility]) Body weight 232.00 [lb_av] 232.00 [lb_av] JACY Bailey ([facility], ) per nurse Patient Treatment Plan of Care Planned Activity Planned Date Details Description Data Source (s) Occupational Therapy 10/19/2020 12:00:00 AM EDT eCW1 ([facility]) Occupational Therapy 10/19/2020 12:00:00 AM EDT eCW1 ([facility]) Occupational Therapy 10/19/2020 12:00:00 AM EDT eCW1 ([facility]) Occupational Therapy 10/19/2020 12:00:00 AM EDT eCW1 ([facility]) Occupational Therapy 10/19/2020 12:00:00 AM EDT eCW1 ([facility]) Occupational Therapy 10/19/2020 12:00:00 AM EDT eCW1 ([facility]) carbamide peroxide 65 MG/ML Otic Solution [Debrox] 09/27/2020 12 :00:00 AM EDT eCW1 ([facility]) cefdinir 300 MG Oral Capsule 09/27/2020 12:00:00 AM EDT eCW1 ([facility]) carbamide peroxide 65 MG/ML Otic Solution [Debrox] 09/27/2020 12 :00:00 AM EDT eCW1 ([facility]) cefdinir 300 MG Oral Capsule 09/27/2020 12:00:00 AM EDT eCW1 ([facility])
[2021-04-06 18:10] LABS: HEMATOCRIT 36.1 % (42.0-52.0); HEMOGLOBIN 12.3 g/dl (13.5-17.5); MEAN CORPUSCULAR HEMOGLOBIN 29.3 pg (27.0-33.0); MEAN CORPUSCULAR HGB CONC 34.1 g/dl (32.0-36.5); PLATELET COUNT, AUTOMATED 344 10^3/uL (150-450); WHITE BLOOD COUNT 7.3 10^3/uL (4.0-10.0)
[2021-04-06 18:38] LABS: FREE T4 0.8 NG/DL (0.78-1.33)
[2021-04-06 18:48] LABS: ACETAMINOPHEN LEVEL < 2.0 UG/ML (10.0-30.0); ALBUMIN 3.7 GM/DL (3.2-5.2); ALT/SGPT 20 U/L (12-78); BILIRUBIN,DIRECT < 0.1 MG/DL (0.0-0.2); BILIRUBIN,TOTAL 0.2 MG/DL (0.2-1.0); BLOOD UREA NITROGEN 12 MG/DL (7-18); CARBON DIOXIDE LEVEL 27 MEQ/L (21-32); CHLORIDE LEVEL 101 MEQ/L (98-107); CREATININE FOR GFR 0.54 MG/DL (0.70-1.30); ETHYL ALCOHOL (ETHANOL) < 0.003 % (0.000-0.010); GLUCOSE, FASTING 85 MG/DL (70-100); POTASSIUM SERUM 3.9 MEQ/L (3.5-5.1); SALICYLATE LEVEL < 1.7 MG/DL (5.0-30.0); SODIUM LEVEL 136 MEQ/L (136-145); TOTAL PROTEIN 6.9 GM/DL (6.4-8.2)
== END 2021-04-06 19:45 | disposition home or self-care (01) ==
LOC: M ED 14:20
DX: F84.0 Autistic disorder (principal); Z88.0 Allergy status to penicillin; Z88.1 Allergy status to other antibiotic agents; Z79.899 Other long term (current) drug therapy

== ENCOUNTER → 2021-04-30 | Outpatient (CLI) | payer MEDICAID | LOC: M LABSMTC 13:45 | PROVIDERS: ATTEND Pediatrics | DX: Z20.822 Contact with and (suspected) exposure to COVID-19 (principal) ==

== ENCOUNTER → 2021-05-29 | Outpatient (REF) | payer MEDICAID ==
[2021-05-29 13:53] LABS: BLOOD UREA NITROGEN 12 MG/DL (7-18); CALCIUM LEVEL 9.5 MG/DL (8.5-10.1); CARBON DIOXIDE LEVEL 27 MEQ/L (21-32); CHLORIDE LEVEL 106 MEQ/L (98-107); CREATININE FOR GFR 0.61 MG/DL (0.70-1.30); GLUCOSE, FASTING 113 MG/DL (70-100); POTASSIUM SERUM 4.3 MEQ/L (3.5-5.1); SODIUM LEVEL 140 MEQ/L (136-145)
== END ==
LOC: M SFHCADAM 12:40
PROVIDERS: ATTEND Physician Assistant Medical
DX: E03.9 Hypothyroidism, unspecified (principal); E87.1 Hypo-osmolality and hyponatremia

== ENCOUNTER → 2021-11-12 | Outpatient (REF) | payer MEDICAID ==
[~2021-11-12] MED LIST changes: -HALO5TA PO; +HALO5TAB33 PO; -LATU80TA PO; +LATU80TA2 PO
[2021-11-12 16:55] LABS: ALBUMIN 3.6 GM/DL (3.2-5.2); ALT/SGPT 19 U/L (12-78); BILIRUBIN,TOTAL 0.2 MG/DL (0.2-1.0); BLOOD UREA NITROGEN 8 MG/DL (7-18); CALCIUM LEVEL 9.8 MG/DL (8.5-10.1); CARBON DIOXIDE LEVEL 26 MEQ/L (21-32); CHLORIDE LEVEL 104 MEQ/L (98-107); CREATININE FOR GFR 0.64 MG/DL (0.70-1.30); GLUCOSE, FASTING 107 MG/DL (70-100); SODIUM LEVEL 141 MEQ/L (136-145)
[2021-11-12 18:21] LABS: HEMOGLOBIN A1c 5.4 %
== END ==
LOC: M SFHCADAM 14:33
PROVIDERS: ATTEND Physician Assistant Medical
DX: E03.9 Hypothyroidism, unspecified (principal); E66.01 Morbid (severe) obesity due to excess calories

== ENCOUNTER → 2021-12-21 | Outpatient (CLI) | payer MEDICAID ==
[2021-12-21 10:52] LABS: BASO % 0.6 % (0.0-1.0); EOS # 0.1 10^3/uL (0.0-0.5); EOS % 2.1 % (0.0-3.0); HEMATOCRIT 41.4 % (42.0-52.0); HEMOGLOBIN 13.4 g/dl (13.5-17.5); LYMPH # 2.2 10^3/uL (1.5-5.0); LYMPH % 36.2 % (24.0-44.0); MEAN CORPUSCULAR HEMOGLOBIN 27.8 pg (27.0-33.0); MEAN CORPUSCULAR HGB CONC 32.4 g/dl (32.0-36.5); MEAN CORPUSCULAR VOLUME 85.9 fl (80.0-96.0); MONO # 0.6 10^3/uL (0.0-0.8); MONO % 10.2 % (2.0-8.0); NEUTROPHILS # 3.1 10^3/uL (1.5-8.5); NEUTROPHILS % 50.3 % (36.0-66.0); PLATELET COUNT, AUTOMATED 370 10^3/uL (150-450); RED BLOOD COUNT 4.82 10^6/uL (4.30-6.10); WHITE BLOOD COUNT 6.2 10^3/uL (4.0-10.0)
[2021-12-21 11:11] LABS: HEMOGLOBIN A1c 5.2 %
[2021-12-21 11:16] LABS: BLOOD UREA NITROGEN 8 MG/DL (7-18); CREATININE FOR GFR 0.48 MG/DL (0.70-1.30); GLUCOSE, FASTING 92 MG/DL (70-100)
[2021-12-21 11:17] LABS: ALBUMIN 3.6 GM/DL (3.2-5.2); ALT/SGPT 14 U/L (12-78); BILIRUBIN,DIRECT < 0.1 MG/DL (0.0-0.2); BILIRUBIN,TOTAL 0.2 MG/DL (0.2-1.0); CALCIUM LEVEL 9.8 MG/DL (8.5-10.1); CARBON DIOXIDE LEVEL 25 MEQ/L (21-32); CHLORIDE LEVEL 106 MEQ/L (98-107); CHOLESTEROL LEVEL 192 MG/DL (<200); HDL CHOLESTEROL 29 MG/DL (>40); LDL CHOLESTEROL 102 MG/DL (<100); NON-HDL-C 163 MG/DL; POTASSIUM SERUM 4.4 MEQ/L (3.5-5.1); SODIUM LEVEL 139 MEQ/L (136-145); TOTAL PROTEIN 7.6 GM/DL (6.4-8.2); TRIGLYCERIDES LEVEL 306 MG/DL (<150); VALPROIC ACID (DEPAKOTE) 68.7 UG/ML (50.0-100.0)
== END ==
LOC: M ADAMS 08:11
PROVIDERS: ATTEND Psychiatry & Neurology Psychiatry
DX: F94.1 Reactive attachment disorder of childhood (principal); F33.1 Major depressive disorder, recurrent, moderate

== ENCOUNTER → 2021-12-21 | Outpatient (CLI) | payer MEDICAID ==
[2021-12-21 10:52] LABS: BASO % 0.3 % (0.0-1.0); EOS # 0.1 10^3/uL (0.0-0.5); EOS % 2.1 % (0.0-3.0); HEMATOCRIT 41.6 % (42.0-52.0); HEMOGLOBIN 13.5 g/dl (13.5-17.5); LYMPH # 2.2 10^3/uL (1.5-5.0); LYMPH % 36.3 % (24.0-44.0); MEAN CORPUSCULAR HEMOGLOBIN 27.7 pg (27.0-33.0); MEAN CORPUSCULAR HGB CONC 32.5 g/dl (32.0-36.5); MEAN CORPUSCULAR VOLUME 85.2 fl (80.0-96.0); MONO # 0.6 10^3/uL (0.0-0.8); MONO % 9.4 % (2.0-8.0); NEUTROPHILS # 3.1 10^3/uL (1.5-8.5); NEUTROPHILS % 51.2 % (36.0-66.0); PLATELET COUNT, AUTOMATED 360 10^3/uL (150-450); RED BLOOD COUNT 4.88 10^6/uL (4.30-6.10); WHITE BLOOD COUNT 6.1 10^3/uL (4.0-10.0)
[2021-12-21 11:17] LABS: ALBUMIN 3.7 GM/DL (3.2-5.2); ALT/SGPT 14 U/L (12-78); BILIRUBIN,TOTAL 0.2 MG/DL (0.2-1.0); BLOOD UREA NITROGEN 8 MG/DL (7-18); CARBON DIOXIDE LEVEL 25 MEQ/L (21-32); CHLORIDE LEVEL 104 MEQ/L (98-107); CREATININE FOR GFR 0.49 MG/DL (0.70-1.30); GLUCOSE, FASTING 87 MG/DL (70-100); POTASSIUM SERUM 4.4 MEQ/L (3.5-5.1); SODIUM LEVEL 139 MEQ/L (136-145); TOTAL PROTEIN 7.5 GM/DL (6.4-8.2); VALPROIC ACID (DEPAKOTE) 66.7 UG/ML (50.0-100.0)
== END ==
LOC: M ADAMS 08:14
PROVIDERS: ATTEND Psychiatry & Neurology Neurology
DX: R56.9 Unspecified convulsions (principal)

== ENCOUNTER → 2022-02-05 | Outpatient (REF) | payer MEDICAID ==
[2022-02-05 18:31] LABS: BASO % 0.4 % (0.0-1.0); EOS # 0.1 10^3/uL (0.0-0.5); EOS % 1.7 % (0.0-3.0); HEMATOCRIT 34.5 % (42.0-52.0); HEMOGLOBIN 11.2 g/dl (13.5-17.5); LYMPH # 2.8 10^3/uL (1.5-5.0); LYMPH % 33.6 % (24.0-44.0); MEAN CORPUSCULAR HEMOGLOBIN 28.6 pg (27.0-33.0); MEAN CORPUSCULAR HGB CONC 32.5 g/dl (32.0-36.5); MONO # 0.7 10^3/uL (0.0-0.8); MONO % 7.8 % (2.0-8.0); NEUTROPHILS # 4.7 10^3/uL (1.5-8.5); NEUTROPHILS % 56.1 % (36.0-66.0); PLATELET COUNT, AUTOMATED 434 10^3/uL (150-450); RED BLOOD COUNT 3.92 10^6/uL (4.30-6.10); WHITE BLOOD COUNT 8.3 10^3/uL (4.0-10.0)
[2022-02-05 18:54] LABS: PERCENT SATURATION 15.2 % (19.7-50.0)
== END ==
LOC: M SFHCADAM 15:35
PROVIDERS: ATTEND Physician Assistant Medical
DX: D50.8 Other iron deficiency anemias (principal)

== ENCOUNTER → 2022-05-30 | Outpatient (REF) | payer MEDICAID ==
[~2022-05-30] MED LIST changes: +DIPH-435 PO; -DIPH25CA32 PO
[2022-05-30 13:13] LABS: HEMATOCRIT 38.7 % (42.0-52.0); HEMOGLOBIN 12.3 g/dl (13.5-17.5); MEAN CORPUSCULAR HEMOGLOBIN 27.5 pg (27.0-33.0); MEAN CORPUSCULAR HGB CONC 31.8 g/dl (32.0-36.5); MEAN CORPUSCULAR VOLUME 86.6 fl (80.0-96.0); PLATELET COUNT, AUTOMATED 405 10^3/uL (150-450); RED BLOOD COUNT 4.47 10^6/uL (4.30-6.10); WHITE BLOOD COUNT 7.1 10^3/uL (4.0-10.0)
[2022-05-30 13:51] LABS: THYROID STIMULATING HORMONE 1.814 uIU/ML (0.48-4.17); VALPROIC ACID (DEPAKOTE) 31.1 UG/ML (50.0-100.0)
[2022-05-30 13:52] LABS: TOTAL 25(OH) VITAMIN D 39.2 NG/ML (20.0-100.0)
[2022-05-30 13:54] LABS: ALBUMIN 3.6 G/DL (3.2-5.2); ALKALINE PHOSPHATASE 56 U/L (46-116); ALT/SGPT 16 U/L (7.0-40); AST/SGOT 8 U/L (<34); BILIRUBIN,TOTAL 0.2 MG/DL (0.3-1.2); BLOOD UREA NITROGEN 9 MG/DL (9-23); CALCIUM LEVEL 9.3 MG/DL (8.5-10.1); CARBON DIOXIDE LEVEL 24 MMOL/L (20-31); CHLORIDE LEVEL 104 MMOL/L (98-107); CHOLESTEROL LEVEL 151 MG/DL (<200); CHOLESTEROL RISK RATIO 5.03 (<5); CREATININE FOR GFR 0.42 MG/DL (0.70-1.30); GLUCOSE, FASTING 100 MG/DL (60-100); NON-HDL-C 121 MG/DL; POTASSIUM SERUM 4.6 MMOL/L (3.5-5.1); SODIUM LEVEL 139 MMOL/L (136-145); TOTAL PROTEIN 6.5 G/DL (5.7-8.2); TRIGLYCERIDES LEVEL 180 MG/DL (<150)
[2022-05-30 14:04] LABS: HEMOGLOBIN A1c 5.1 % (4.0-6.0)
== END ==
LOC: M SFHCADAM 10:11
PROVIDERS: ATTEND Physician Assistant Medical
DX: G40.909 Epilepsy, unspecified, not intractable, without status epilepticus (principal); F94.1 Reactive attachment disorder of childhood

== ENCOUNTER 2022-11-13 09:48 | Emergency (ER) | payer MEDICAID ==
[~2022-11-13] VITALS: Ht 165.1 cm; Wt 130.4 kg
[2022-11-13] MEDS ORDERED: APAP325T4 PO (09:55)
[2022-11-13 12:24] LABS: BASO % 0.1 % (0.0-1.0); EOS # 0.3 10^3/uL (0.0-0.5); EOS % 4.1 % (0.0-3.0); HEMATOCRIT 34.6 % (42.0-52.0); HEMOGLOBIN 11.5 g/dl (13.5-17.5); LYMPH # 1.5 10^3/uL (1.5-5.0); LYMPH % 19.1 % (24.0-44.0); MEAN CORPUSCULAR HGB CONC 33.2 g/dl (32.0-36.5); MEAN CORPUSCULAR VOLUME 84.2 fl (80.0-96.0); MONO # 1.1 10^3/uL (0.0-0.8); MONO % 13.6 % (2.0-8.0); NEUTROPHILS # 4.9 10^3/uL (1.5-8.5); NEUTROPHILS % 62.7 % (36.0-66.0); PLATELET COUNT, AUTOMATED 424 10^3/uL (150-450); RED BLOOD COUNT 4.11 10^6/uL (4.30-6.10); WHITE BLOOD COUNT 7.8 10^3/uL (4.0-10.0)
[2022-11-13 12:53] LABS: LIPASE 31 U/L (12-53)
[2022-11-13 12:59] LABS: ALBUMIN 3.2 G/DL (3.2-5.2); ALKALINE PHOSPHATASE 59 U/L (46-116); ALT/SGPT 17 U/L (7.0-40); AST/SGOT 9 U/L (<34); BILIRUBIN,DIRECT < 0.1 MG/DL (<0.4); BILIRUBIN,TOTAL 0.2 MG/DL (0.3-1.2); BLOOD UREA NITROGEN < 5 MG/DL (9-23); CALCIUM LEVEL 10.1 MG/DL (8.5-10.1); CARBON DIOXIDE LEVEL 26 MMOL/L (20-31); CHLORIDE LEVEL 97 MMOL/L (98-107); GLOMERULAR FILTRATION RATE > 60.0 (>60); GLUCOSE, FASTING 110 MG/DL (60-100); SODIUM LEVEL 132 MMOL/L (136-145); TOTAL PROTEIN 6.5 G/DL (5.7-8.2)
[2022-11-13] MEDS ORDERED: NS 1,000 ML IV ONE (14:15)
[2022-11-13] MEDS ORDERED: ISOVUE-370 76% 100ML VIAL As Ordered ONE (14:39)
[2022-11-13] MEDS ORDERED: LEVO1TAB40 PO (17:39)
[2022-11-13] MEDS ORDERED: CALC260T PO (17:39)
[2022-11-13] MEDS ORDERED: LevoFLOXacin 750 MG TABLET PO ONE (17:40)
[2022-11-13 18:16] VITALS: BP 131/69; TEMP 99.2; O2SAT 98
[2022-11-13] MEDS ORDERED: LISI10TA22 PO (20:06)
[2022-11-13] MEDS ORDERED: BANO25TA PO (20:06)
[2022-11-13] MEDS ORDERED: ZOLO100T PO (20:06)
[2022-11-13] MEDS ORDERED: METF10004 PO (20:06)
[2022-11-13] MEDS ORDERED: RA M10TA PO (20:06)
[2022-11-13] MEDS ORDERED: QUET200T79 PO (20:06)
[2022-11-13] MEDS ORDERED: HALO5TAB33 PO (20:06)
[2022-11-13] MEDS ORDERED: LORA1TAB23 PO (20:06)
[2022-11-13] MEDS ORDERED: TRAZ-252 PO (20:06)
[2022-11-13] MEDS ORDERED: LEVO25TA5 PO (20:06)
[2022-11-13] MEDS ORDERED: DEBR6.5S4 AU (20:06)
[2022-11-13] MEDS ORDERED: IBUP-1720 PO (20:06)
[2022-11-13] MEDS ORDERED: VITA500045 PO (20:06)
== END 2022-11-13 18:23 | disposition home or self-care (01) ==
LOC: M ED 09:48
DX: K81.0 Acute cholecystitis (principal); T18.9XXA Foreign body of alimentary tract, part unspecified, initial encounter; I10 Essential (primary) hypertension; E78.5 Hyperlipidemia, unspecified; F32.A Depression, unspecified; F41.9 Anxiety disorder, unspecified; Z88.0 Allergy status to penicillin; Z88.1 Allergy status to other antibiotic agents; Z88.8 Allergy status to other drugs, medicaments and biological substances; Z91.012 Allergy to eggs; Z91.011 Allergy to milk products; Z79.811 Long term (current) use of aromatase inhibitors; Z79.1 Long term (current) use of non-steroidal anti-inflammatories (NSAID); Z79.899 Other long term (current) drug therapy
CPT/HCPCS: 36415; 74018; 74177; 76705; 80048; 80076; 83605; 83690; 85025; 87040; 87486; 87581; 87633; 87798; 96360; 99284; Q9967

== ENCOUNTER → 2022-12-04 | Outpatient (REF) | payer MEDICAID ==
[~2022-12-04] MED LIST changes: +APAP325T4 PO; +BANO25TA PO; +CALC260T PO; +DEBR6.5S4 AU; +IBUP-1720 PO; +LEVO1TAB40 PO; +LEVO25TA5 PO; +LISI10TA22 PO; +LORA1TAB23 PO; +METF10004 PO; +QUET200T79 PO; +RA M10TA PO; +TRAZ-252 PO; +VITA500045 PO; +ZOLO100T PO
[2022-12-04 13:04] LABS: BASO % 0.5 % (0.0-1.0); EOS # 0.3 10^3/uL (0.0-0.5); EOS % 7.4 % (0.0-3.0); HEMATOCRIT 39.8 % (42.0-52.0); HEMOGLOBIN 12.9 g/dl (13.5-17.5); LYMPH # 1.5 10^3/uL (1.5-5.0); LYMPH % 36.5 % (24.0-44.0); MEAN CORPUSCULAR HEMOGLOBIN 27.8 pg (27.0-33.0); MEAN CORPUSCULAR HGB CONC 32.4 g/dl (32.0-36.5); MEAN CORPUSCULAR VOLUME 85.8 fl (80.0-96.0); MONO # 0.3 10^3/uL (0.0-0.8); MONO % 6.2 % (2.0-8.0); NEUTROPHILS % 49.2 % (36.0-66.0); PLATELET COUNT, AUTOMATED 384 10^3/uL (150-450); RED BLOOD COUNT 4.64 10^6/uL (4.30-6.10); WHITE BLOOD COUNT 4.1 10^3/uL (4.0-10.0)
[2022-12-04 13:25] LABS: ALBUMIN 3.6 G/DL (3.2-5.2); ALKALINE PHOSPHATASE 61 U/L (46-116); ALT/SGPT 11 U/L (7.0-40); AST/SGOT < 8 U/L (<34); BILIRUBIN,TOTAL 0.3 MG/DL (0.3-1.2); BLOOD UREA NITROGEN 7 MG/DL (9-23); CALCIUM LEVEL 9.5 MG/DL (8.5-10.1); CARBON DIOXIDE LEVEL 26 MMOL/L (20-31); CHLORIDE LEVEL 105 MMOL/L (98-107); CREATININE FOR GFR 0.39 MG/DL (0.70-1.30); GLOMERULAR FILTRATION RATE > 60.0 (>60); GLUCOSE, FASTING 126 MG/DL (60-100); IRON (FE) 84 UG/DL (65-175); PERCENT SATURATION 28.7 % (19.7-50.0); POTASSIUM SERUM 4.2 MMOL/L (3.5-5.1); SODIUM LEVEL 139 MMOL/L (136-145); TOTAL IRON BINDING CAPACITY 293 UG/DL (250-425); TOTAL PROTEIN 6.5 G/DL (5.7-8.2)
[2022-12-04 13:26] LABS: FERRITIN 184.1 NG/ML (10.5-307.3)
== END ==
LOC: M SFHCADAM 10:23
PROVIDERS: ATTEND Physician Assistant Medical
DX: I10 Essential (primary) hypertension (principal); K81.9 Cholecystitis, unspecified; E66.9 Obesity, unspecified; D50.8 Other iron deficiency anemias

== ENCOUNTER → 2023-02-14 | Outpatient (CLI) | payer MEDICAID ==
[~2023-02-14] MED LIST changes: +E-Z-GAS II EFFERVESCENT PACKET (SODIUM BICARB./CITRIC ACID/SIMETHICONE) As Ordered ONE; +E-Z-HD 98% w/w 340GM SUSP BTL As Ordered ONE; +E-Z-PAQUE 96% w/w SUSP 176GM BTL As Ordered ONE
== END ==
LOC: M RAD 08:47
PROVIDERS: ATTEND Surgery
DX: R63.4 Abnormal weight loss (principal); R10.84 Generalized abdominal pain

== ENCOUNTER → 2023-04-07 | Outpatient (REF) | payer MEDICAID ==
[~2023-04-07] MED LIST changes: -E-Z-GAS II EFFERVESCENT PACKET (SODIUM BICARB./CITRIC ACID/SIMETHICONE) As Ordered ONE; -E-Z-HD 98% w/w 340GM SUSP BTL As Ordered ONE; -E-Z-PAQUE 96% w/w SUSP 176GM BTL As Ordered ONE
[2023-04-07 13:43] LABS: VALPROIC ACID (DEPAKOTE) 33.9 UG/ML (50.0-100.0)
[2023-04-07 13:45] LABS: ALBUMIN 3.5 G/DL (3.2-5.2); ALKALINE PHOSPHATASE 46 U/L (46-116); ALT/SGPT 19 U/L (7.0-40); AST/SGOT < 8 U/L (<34); BILIRUBIN,TOTAL 0.3 MG/DL (0.3-1.2); BLOOD UREA NITROGEN 7 MG/DL (9-23); CALCIUM LEVEL 9.6 MG/DL (8.5-10.1); CARBON DIOXIDE LEVEL 30 MMOL/L (20-31); CHLORIDE LEVEL 104 MMOL/L (98-107); CHOLESTEROL LEVEL 170 MG/DL (<200); CHOLESTEROL RISK RATIO 5.46 (<5); CREATININE FOR GFR 0.52 MG/DL (0.70-1.30); GLOMERULAR FILTRATION RATE > 60.0 (>60); GLUCOSE, FASTING 96 MG/DL (60-100); HDL CHOLESTEROL 31.1 MG/DL (>40); LDL CHOLESTEROL 109.1 MG/DL (<100); NON-HDL-C 138.9 MG/DL; POTASSIUM SERUM 4.7 MMOL/L (3.5-5.1); SODIUM LEVEL 141 MMOL/L (136-145); TOTAL PROTEIN 6.7 G/DL (5.7-8.2); TRIGLYCERIDES LEVEL 149 MG/DL (<150)
[2023-04-07 13:47] LABS: BASO % 0.4 % (0.0-1.0); EOS # 0.6 10^3/uL (0.0-0.5); EOS % 8.3 % (0.0-3.0); HEMATOCRIT 42.6 % (42.0-52.0); HEMOGLOBIN 13.6 g/dl (13.5-17.5); LYMPH # 2.1 10^3/uL (1.5-5.0); MEAN CORPUSCULAR HEMOGLOBIN 27.9 pg (27.0-33.0); MEAN CORPUSCULAR HGB CONC 31.9 g/dl (32.0-36.5); MEAN CORPUSCULAR VOLUME 87.5 fl (80.0-96.0); MONO # 0.5 10^3/uL (0.0-0.8); MONO % 7.2 % (2.0-8.0); NEUTROPHILS # 3.7 10^3/uL (1.5-8.5); NEUTROPHILS % 53.7 % (36.0-66.0); PLATELET COUNT, AUTOMATED 430 10^3/uL (150-450); RED BLOOD COUNT 4.87 10^6/uL (4.30-6.10)
== END ==
LOC: M LABDRWAD 13:08
PROVIDERS: ATTEND Psychiatry & Neurology Psychiatry
DX: F94.1 Reactive attachment disorder of childhood (principal); F33.1 Major depressive disorder, recurrent, moderate; F84.0 Autistic disorder

== ENCOUNTER → 2023-06-18 | Outpatient (REF) | payer MEDICAID ==
[2023-06-18 16:28] LABS: BASO % 0.2 % (0.0-1.0); EOS # 0.2 10^3/uL (0.0-0.5); EOS % 1.7 % (0.0-3.0); HEMATOCRIT 35.9 % (42.0-52.0); LYMPH # 1.9 10^3/uL (1.5-5.0); LYMPH % 13.3 % (24.0-44.0); MEAN CORPUSCULAR HEMOGLOBIN 27.6 pg (27.0-33.0); MEAN CORPUSCULAR HGB CONC 30.6 g/dl (32.0-36.5); MONO # 1.3 10^3/uL (0.0-0.8); MONO % 9.4 % (2.0-8.0); NEUTROPHILS # 10.4 10^3/uL (1.5-8.5); NEUTROPHILS % 74.3 % (36.0-66.0); RED BLOOD COUNT 3.99 10^6/uL (4.30-6.10)
[2023-06-18 16:34] LABS: ALKALINE PHOSPHATASE 88 U/L (46-116); ALT/SGPT 34 U/L (7.0-40); AST/SGOT 31 U/L (<34); BILIRUBIN,TOTAL 0.3 MG/DL (0.3-1.2); BLOOD UREA NITROGEN 7 MG/DL (9-23); CALCIUM LEVEL 9.5 MG/DL (8.5-10.1); CARBON DIOXIDE LEVEL 26 MMOL/L (20-31); CHLORIDE LEVEL 97 MMOL/L (98-107); CREATININE FOR GFR 0.44 MG/DL (0.70-1.30); GLOMERULAR FILTRATION RATE > 60.0 (>60); GLUCOSE, FASTING 89 MG/DL (60-100); POTASSIUM SERUM 4.7 MMOL/L (3.5-5.1); SODIUM LEVEL 129 MMOL/L (136-145); TOTAL PROTEIN 7.7 G/DL (5.7-8.2)
[2023-06-18 16:51] LABS: PLATELET COUNT, AUTOMATED 1119 10^3/uL (150-450)
== END ==
LOC: M SFHCADAM 12:01
PROVIDERS: ATTEND Physician Assistant Medical
DX: F50.89 Other specified eating disorder (principal); Z48.02 Encounter for removal of sutures; E66.9 Obesity, unspecified

== ENCOUNTER 2023-06-19 09:57 | Emergency (ER) | payer MEDICAID ==
[~2023-06-19] VITALS: Ht 165.1 cm; Wt 101.4 kg
[2023-06-19] MEDS ORDERED: NS 500 ML IV ONE (12:00)
[2023-06-19 12:40] LABS: BASO % 0.2 % (0.0-1.0); EOS # 0.1 10^3/uL (0.0-0.5); EOS % 0.9 % (0.0-3.0); HEMATOCRIT 33.9 % (42.0-52.0); HEMOGLOBIN 10.6 g/dl (13.5-17.5); LYMPH # 1.5 10^3/uL (1.5-5.0); LYMPH % 10.8 % (24.0-44.0); MEAN CORPUSCULAR HEMOGLOBIN 27.2 pg (27.0-33.0); MEAN CORPUSCULAR HGB CONC 31.3 g/dl (32.0-36.5); MEAN CORPUSCULAR VOLUME 87.1 fl (80.0-96.0); MONO # 1.4 10^3/uL (0.0-0.8); MONO % 9.8 % (2.0-8.0); NEUTROPHILS # 10.7 10^3/uL (1.5-8.5); NEUTROPHILS % 77.8 % (36.0-66.0); PLATELET COUNT, AUTOMATED 911 10^3/uL (150-450); RED BLOOD COUNT 3.89 10^6/uL (4.30-6.10); WHITE BLOOD COUNT 13.8 10^3/uL (4.0-10.0)
[2023-06-19] MEDS ORDERED: LORazepam 2 MG/ML 1ML VIAL IV STA (13:15)
[2023-06-19 13:25] LABS: RSV AMPLIFICATION NEGATIVE (NEGATIVE)
[2023-06-19 13:28] LABS: ALKALINE PHOSPHATASE 81 U/L (46-116); ALT/SGPT 29 U/L (7.0-40); AST/SGOT 27 U/L (<34); BILIRUBIN,DIRECT 0.1 MG/DL (<0.4); BILIRUBIN,TOTAL 0.3 MG/DL (0.3-1.2); BLOOD UREA NITROGEN 7 MG/DL (9-23); CALCIUM LEVEL 9.3 MG/DL (8.5-10.1); CARBON DIOXIDE LEVEL 27 MMOL/L (20-31); CHLORIDE LEVEL 100 MMOL/L (98-107); CREATININE FOR GFR 0.61 MG/DL (0.70-1.30); GLOMERULAR FILTRATION RATE > 60.0 (>60); GLUCOSE, FASTING 91 MG/DL (60-100); POTASSIUM SERUM 4.4 MMOL/L (3.5-5.1); SODIUM LEVEL 132 MMOL/L (136-145); TOTAL PROTEIN 7.6 G/DL (5.7-8.2)
[2023-06-19] MEDS ORDERED: ISOVUE-370 76% 100ML VIAL As Ordered ONE (13:34)
[2023-06-20] MEDS: NS 1,000 ML IV SCH ×2 (01:05→07:45)
[2023-06-20] MEDS ORDERED: CIPROFLOXACIN 400 MG in IV 1 EA IV ONE (04:45)
[2023-06-20] MEDS ORDERED: metroNIDAZOLE 500 MG in IV 1 EA IV ONE (04:45)
[2023-06-20 08:40] LABS: APPEARANCE, URINE CLEAR (CLEAR); BACTERIA, URINE AUTO NEGATIVE (NEGATIVE); BILIRUBIN, URINE AUTO NEGATIVE (NEGATIVE); BLOOD, URINE BLOOD NEGATIVE (NEGATIVE); COLOR, URINE YELLOW (YELLOW); GLUCOSE, URINE (UA) AUTO NEGATIVE (NEGATIVE); KETONE, URINE AUTO TRACE mg/dL (NEGATIVE); LEUKOCYTE ESTERASE, URINE AUTO TRACE (NEGATIVE); MUCUS, URINE SMALL (NEGATIVE); NITRITE, URINE AUTO NEGATIVE (NEGATIVE); PROTEIN, URINE AUTO NEGATIVE (NEGATIVE); RBC, URINE AUTO 0 /HPF (0-3); SPECIFIC GRAVITY URINE AUTO 1.029 (1.002-1.035); SQUAMOUS EPITHELIAL CELL UR AU 2 /HPF (0-6); UROBILINOGEN, URINE AUTO 0.2 mg/dL (0.0-2.0); WBC, URINE AUTO 1 /HPF (0-3)
[2023-06-20 10:25] VITALS: BP 114/59; TEMP 97.3; O2SAT 99
== END 2023-06-20 10:33 | disposition short-term general hospital (02) ==
LOC: M ED 09:57
DX: T88.9XXA Complication of surgical and medical care, unspecified, initial encounter (principal); R18.8 Other ascites; F84.0 Autistic disorder; Z79.1 Long term (current) use of non-steroidal anti-inflammatories (NSAID); Z79.811 Long term (current) use of aromatase inhibitors; Z79.899 Other long term (current) drug therapy
CPT/HCPCS: 74177; 80048; 80076; 81001; 83605; 85025; 87631; 96365; 96366; 96375; 99284; J0744; J1836; J2060; Q9967

== ENCOUNTER → 2023-08-21 | Outpatient (REF) | payer MEDICAID | LOC: M SFHCADAM 10:21 | PROVIDERS: ATTEND Physician Assistant Medical | DX: D50.8 Other iron deficiency anemias (principal); E03.9 Hypothyroidism, unspecified; E55.9 Vitamin D deficiency, unspecified ==

== ENCOUNTER → 2023-10-29 | Outpatient (CLI) | payer MEDICAID | LOC: M ADAMS 14:35 | PROVIDERS: ATTEND Physician Assistant Medical | DX: T18.9XXA Foreign body of alimentary tract, part unspecified, initial encounter (principal); F50.89 Other specified eating disorder ==

== ENCOUNTER → 2023-12-02 | Outpatient (REF) | payer MEDICAID ==
[2023-12-02 17:34] LABS: TOTAL IRON BINDING CAPACITY 262 UG/DL (250-425)
[2023-12-02 17:35] LABS: ALBUMIN 3.5 G/DL (3.2-5.2); ALKALINE PHOSPHATASE 47 U/L (46-116); ALT/SGPT 16 U/L (7.0-40); AST/SGOT 8 U/L (<34); BASO % 0.2 % (0.0-1.0); BILIRUBIN,TOTAL 0.2 MG/DL (0.3-1.2); BLOOD UREA NITROGEN 9 MG/DL (9-23); CALCIUM LEVEL 8.8 MG/DL (8.5-10.1); CARBON DIOXIDE LEVEL 27 MMOL/L (20-31); CHLORIDE LEVEL 97 MMOL/L (98-107); CREATININE FOR GFR 0.44 MG/DL (0.70-1.30); EOS # 0.3 10^3/uL (0.0-0.5); EOS % 3.3 % (0.0-3.0); GLOMERULAR FILTRATION RATE > 60.0 (>60); GLUCOSE, FASTING 91 MG/DL (60-100); HEMATOCRIT 37.4 % (42.0-52.0); HEMOGLOBIN 12.3 g/dl (13.5-17.5); IRON (FE) 64 UG/DL (65-175); LYMPH # 2.2 10^3/uL (1.5-5.0); LYMPH % 25.7 % (24.0-44.0); MAGNESIUM LEVEL 1.5 MG/DL (1.8-2.4); MEAN CORPUSCULAR HEMOGLOBIN 28.6 pg (27.0-33.0); MEAN CORPUSCULAR HGB CONC 32.9 g/dl (32.0-36.5); MONO # 0.7 10^3/uL (0.0-0.8); MONO % 8.5 % (2.0-8.0); NEUTROPHILS # 5.2 10^3/uL (1.5-8.5); NEUTROPHILS % 61.9 % (36.0-66.0); PERCENT SATURATION 24.4 % (19.7-50.0); PLATELET COUNT, AUTOMATED 390 10^3/uL (150-450); POTASSIUM SERUM 4.3 MMOL/L (3.5-5.1); SODIUM LEVEL 130 MMOL/L (136-145); TOTAL PROTEIN 6.2 G/DL (5.7-8.2); WHITE BLOOD COUNT 8.4 10^3/uL (4.0-10.0)
[2023-12-02 17:38] LABS: THYROID STIMULATING HORMONE 1.759 uIU/ML (0.55-4.78)
[2023-12-02 17:39] LABS: FERRITIN 214.3 NG/ML (10.5-307.3); FOLATE 8.6 NG/ML (>5.4); TOTAL 25(OH) VITAMIN D 68.8 NG/ML (20.0-100.0); VITAMIN B12 LEVEL 243 PG/ML (211-911)
== END ==
LOC: M SFHCADAM 13:40
PROVIDERS: ATTEND Physician Assistant Medical
DX: I10 Essential (primary) hypertension (principal); F84.0 Autistic disorder; D50.8 Other iron deficiency anemias; F94.1 Reactive attachment disorder of childhood; G40.909 Epilepsy, unspecified, not intractable, without status epilepticus; E03.9 Hypothyroidism, unspecified; F50.89 Other specified eating disorder; E66.01 Morbid (severe) obesity due to excess calories; Z68.37 Body mass index [BMI] 37.0-37.9, adult; E55.9 Vitamin D deficiency, unspecified

== ENCOUNTER → 2024-06-03 | Outpatient (REF) | payer MEDICAID ==
[2024-06-03 13:09] LABS: BASO % 0.4 % (0.0-1.0); EOS # 0.2 10^3/uL (0.0-0.5); EOS % 5.1 % (0.0-3.0); HEMATOCRIT 39.9 % (42.0-52.0); HEMOGLOBIN 12.8 g/dl (13.5-17.5); LYMPH # 1.8 10^3/uL (1.5-5.0); LYMPH % 39.3 % (24.0-44.0); MEAN CORPUSCULAR HEMOGLOBIN 28.8 pg (27.0-33.0); MEAN CORPUSCULAR HGB CONC 32.1 g/dl (32.0-36.5); MEAN CORPUSCULAR VOLUME 89.7 fl (80.0-96.0); MONO # 0.4 10^3/uL (0.0-0.8); MONO % 8.9 % (2.0-8.0); NEUTROPHILS # 2.1 10^3/uL (1.5-8.5); NEUTROPHILS % 46.1 % (36.0-66.0); PLATELET COUNT, AUTOMATED 318 10^3/uL (150-450); RED BLOOD COUNT 4.45 10^6/uL (4.30-6.10); VALPROIC ACID (DEPAKOTE) 30.8 UG/ML (50.0-100.0); WHITE BLOOD COUNT 4.5 10^3/uL (4.0-10.0)
[2024-06-03 13:11] LABS: ALBUMIN 3.8 G/DL (3.2-5.2); ALKALINE PHOSPHATASE 44 U/L (40-129); ALT/SGPT 19 U/L (7.0-40); AST/SGOT 9 U/L (<34); BILIRUBIN,TOTAL 0.3 MG/DL (0.3-1.2); BLOOD UREA NITROGEN 7 MG/DL (9-23); CALCIUM LEVEL 9.6 MG/DL (8.5-10.1); CARBON DIOXIDE LEVEL 30 MMOL/L (20-31); CHLORIDE LEVEL 107 MMOL/L (98-107); CHOLESTEROL LEVEL 147 MG/DL (<200); CHOLESTEROL RISK RATIO 4.02 (<5); CREATININE FOR GFR 0.52 MG/DL (0.70-1.30); GLOMERULAR FILTRATION RATE > 60.0 (>60); GLUCOSE, FASTING 91 MG/DL (60-100); HDL CHOLESTEROL 36.5 MG/DL (>40); IRON (FE) 125 UG/DL (65-175); LDL CHOLESTEROL 90.1 MG/DL (<100); NON-HDL-C 110.5 MG/DL; PERCENT SATURATION 47.7 % (19.7-50.0); POTASSIUM SERUM 4.3 MMOL/L (3.5-5.1); SODIUM LEVEL 139 MMOL/L (136-145); TOTAL IRON BINDING CAPACITY 262 UG/DL (250-425); TOTAL PROTEIN 6.5 G/DL (5.7-8.2); TRIGLYCERIDES LEVEL 102 MG/DL (<150)
[2024-06-03 13:12] LABS: FERRITIN 171.6 NG/ML (10.5-307.3); THYROID STIMULATING HORMONE 1.384 uIU/ML (0.55-4.78)
[2024-06-03 13:13] LABS: FREE T4 0.86 NG/DL (0.89-1.76)
== END ==
LOC: M SFHCADAM 08:53
PROVIDERS: ATTEND Physician Assistant Medical
DX: I10 Essential (primary) hypertension (principal); D50.8 Other iron deficiency anemias; E03.9 Hypothyroidism, unspecified; E55.9 Vitamin D deficiency, unspecified; G40.909 Epilepsy, unspecified, not intractable, without status epilepticus

== ENCOUNTER → 2024-08-12 | Outpatient (REF) | payer MEDICAID ==
[2024-08-12 15:52] LABS: BASO % 0.4 % (0.0-1.0); EOS # 0.3 10^3/uL (0.0-0.5); EOS % 6.4 % (0.0-3.0); HEMATOCRIT 44.2 % (42.0-52.0); HEMOGLOBIN 14.3 g/dl (13.5-17.5); LYMPH # 1.8 10^3/uL (1.5-5.0); LYMPH % 35.7 % (24.0-44.0); MEAN CORPUSCULAR HEMOGLOBIN 29.5 pg (27.0-33.0); MEAN CORPUSCULAR HGB CONC 32.4 g/dl (32.0-36.5); MEAN CORPUSCULAR VOLUME 91.1 fl (80.0-96.0); MONO # 0.5 10^3/uL (0.0-0.8); MONO % 9.4 % (2.0-8.0); NEUTROPHILS # 2.5 10^3/uL (1.5-8.5); NEUTROPHILS % 47.9 % (36.0-66.0); PLATELET COUNT, AUTOMATED 417 10^3/uL (150-450); RED BLOOD COUNT 4.85 10^6/uL (4.30-6.10); WHITE BLOOD COUNT 5.1 10^3/uL (4.0-10.0)
[2024-08-12 16:00] LABS: VALPROIC ACID (DEPAKOTE) 34.5 UG/ML (50.0-100.0)
[2024-08-12 16:01] LABS: ALBUMIN 3.9 G/DL (3.2-5.2); ALKALINE PHOSPHATASE 55 U/L (40-129); ALT/SGPT 29 U/L (7.0-40); AST/SGOT 15 U/L (<34); BILIRUBIN,TOTAL 0.3 MG/DL (0.3-1.2); BLOOD UREA NITROGEN 7 MG/DL (9-23); CALCIUM LEVEL 9.8 MG/DL (8.5-10.1); CARBON DIOXIDE LEVEL 30 MMOL/L (20-31); CHLORIDE LEVEL 104 MMOL/L (98-107); CREATININE FOR GFR 0.53 MG/DL (0.70-1.30); GLOMERULAR FILTRATION RATE > 60.0 (>60); GLUCOSE, FASTING 87 MG/DL (60-100); POTASSIUM SERUM 4.7 MMOL/L (3.5-5.1); SODIUM LEVEL 142 MMOL/L (136-145); TOTAL PROTEIN 7.1 G/DL (5.7-8.2)
== END ==
LOC: M LABDRWAD 15:08
PROVIDERS: ATTEND Psychiatry & Neurology Neurology
DX: G40.909 Epilepsy, unspecified, not intractable, without status epilepticus (principal)

== ENCOUNTER → 2024-08-12 | Outpatient (REF) | payer MEDICAID ==
[2024-08-12 15:54] LABS: BASO % 0.4 % (0.0-1.0); EOS # 0.3 10^3/uL (0.0-0.5); EOS % 5.7 % (0.0-3.0); HEMATOCRIT 44.2 % (42.0-52.0); HEMOGLOBIN 14.5 g/dl (13.5-17.5); LYMPH # 1.7 10^3/uL (1.5-5.0); LYMPH % 35.6 % (24.0-44.0); MEAN CORPUSCULAR HEMOGLOBIN 29.5 pg (27.0-33.0); MEAN CORPUSCULAR HGB CONC 32.8 g/dl (32.0-36.5); MEAN CORPUSCULAR VOLUME 89.8 fl (80.0-96.0); MONO # 0.5 10^3/uL (0.0-0.8); MONO % 9.9 % (2.0-8.0); NEUTROPHILS # 2.3 10^3/uL (1.5-8.5); NEUTROPHILS % 48.2 % (36.0-66.0); PLATELET COUNT, AUTOMATED 412 10^3/uL (150-450); RED BLOOD COUNT 4.92 10^6/uL (4.30-6.10); WHITE BLOOD COUNT 4.8 10^3/uL (4.0-10.0)
[2024-08-12 16:04] LABS: ALBUMIN 3.8 G/DL (3.2-5.2); ALKALINE PHOSPHATASE 53 U/L (40-129); ALT/SGPT 28 U/L (7.0-40); AST/SGOT 14 U/L (<34); BILIRUBIN,TOTAL 0.3 MG/DL (0.3-1.2); BLOOD UREA NITROGEN 7 MG/DL (9-23); CALCIUM LEVEL 9.8 MG/DL (8.5-10.1); CARBON DIOXIDE LEVEL 30 MMOL/L (20-31); CHLORIDE LEVEL 103 MMOL/L (98-107); CHOLESTEROL LEVEL 158 MG/DL (<200); CHOLESTEROL RISK RATIO 3.34 (<5); CREATININE FOR GFR 0.52 MG/DL (0.70-1.30); GLOMERULAR FILTRATION RATE > 60.0 (>60); GLUCOSE, FASTING 89 MG/DL (60-100); HDL CHOLESTEROL 47.3 MG/DL (>40); LDL CHOLESTEROL 95.9 MG/DL (<100); NON-HDL-C 110.7 MG/DL; POTASSIUM SERUM 4.8 MMOL/L (3.5-5.1); SODIUM LEVEL 143 MMOL/L (136-145); TRIGLYCERIDES LEVEL 74 MG/DL (<150); VALPROIC ACID (DEPAKOTE) 33.4 UG/ML (50.0-100.0)
[2024-08-12 16:30] LABS: HEMOGLOBIN A1c 4.5 % (4.0-6.0)
== END ==
LOC: M LABDRWAD 13:10
PROVIDERS: ATTEND Psychiatry & Neurology Psychiatry
DX: F94.1 Reactive attachment disorder of childhood (principal); F33.1 Major depressive disorder, recurrent, moderate

== ENCOUNTER → 2024-12-30 | Outpatient (CLI) | payer MEDICAID ==
[~2024-12-30] MED LIST changes: -DEPA250T32 PO; +DIVA-65 PO
== END ==
LOC: M LABDRWAD 10:07
PROVIDERS: ATTEND Psychiatry & Neurology Psychiatry
DX: F33.1 Major depressive disorder, recurrent, moderate (principal); F94.1 Reactive attachment disorder of childhood

== ENCOUNTER → 2025-03-08 | Outpatient (CLI) | payer MEDICAID ==
[~2025-03-08] MED LIST changes: -DIPH50CA PO; +DIPH50CA31 PO; +ERGO125013 PO; -VITA500045 PO
== END ==
LOC: M LABDRWAD 10:50
PROVIDERS: ATTEND Psychiatry & Neurology Psychiatry
DX: F94.1 Reactive attachment disorder of childhood (principal); F33.1 Major depressive disorder, recurrent, moderate